=== PATIENT | male | born 1970 | race Caucasian/White ===

== ENCOUNTER 2017-04-08 09:38 | Inpatient (IN) ==
[2017-04-08] MEDS ORDERED: 0.9 % SODIUM CHLORIDE 1,000 ML IV ONE ×4 (10:12→15:35)
[2017-04-08 10:44] LABS: Mean Corpuscular HGB Conc 33.2 g/dL (31.0-36.0); Mean Corpuscular Hemoglobin 30.9 pg (26.0-34.0); Platelet Count 276 K/mcL (140-440); Red Cell Distribution Width 13.2 % (11.5-14.5)
--- NOTE | 2017-04-08 10:51 | Emergency Department Note ---
Skin/Abscess/FB HPI - General Chief complaint: Skin/Abscess/Foreign Body Stated complaint: Left buttock and ilya area abscess Time Seen by Provider: 04/08/17 10:20 Source: patient Mode of arrival: ambulatory Limitations: no limitations - History of Present Illness HPI Narrative: 46-year-old male with a history of pain to the left buttocks is been present approximately for 5 days is a large area of tenderness and fluctuation there is no erythema there is no head to the area there is extreme tenderness on palpation. No injury no trauma he has had no previous history of MRSA he is borderline diabetic treated by diet alone. The pain is severe as 03/05 which is 99 2 however patient states he felt warm and hot no erythema no redness to the area no areas close to the anal region or in the soft tissue of the left buttocks - Related Data Home Medications Medication Instructions Recorded Confirmed Pantoprazole [Protonix] 40 mg PO BID 04/08/17 04/08/17 Allergies Allergy/AdvReac Type Severity Reaction Status Date / Time No Known Drug Allergies Allergy Unverified 04/08/17 09:43 Physical Exam - General Limitations: no limitations General appearance: alert - Head Head exam: atraumatic - Eye Eye exam: Present: normal appearance - ENT ENT exam: normal exam - Neck Neck exam: Present: normal inspection, full ROM - Chest Chest inspection: Present: normal inspection, symmetric chest wall rise - Respiratory Respiratory exam: Present: normal lung sounds bilaterally. Absent: respiratory distress - Cardiovascular Cardiovascular exam: Present: regular rate, normal rhythm. Absent: bradycardia , tachycardia - Abdominal Exam Abdominal exam: Present: soft, distention. Absent: tenderness, guarding - Rectal Exam Rectal exam: Present: normal inspection, normal rectal tone, tenderness ( tenderness to left buttock). Absent: hemorrhoids - exam: Present: normal inspection. Absent: testicular tenderness, urethral discharge - Extremities Exam Extremities exam: Present: normal inspection, full ROM - Back Exam Back exam: Present: normal inspection, full ROM - Neurological Exam Neurological exam: Present: alert, oriented X3, CN II-XII intact - Psychiatric Psychiatric exam: Present: normal affect, normal mood - Skin Skin exam: Present: warm, dry Course Vital Signs Temperature 99.2 F H 04/08/17 09:39 Pulse Rate 102 H 04/08/17 09:39 Respiratory Rate 18 04/08/17 09:39 Blood Pressure 109/72 04/08/17 09:39 Pulse Oximetry (%) 99 04/08/17 09:39 Temperature 98.3 F 04/08/17 18:11 Pulse Rate 105 H 04/08/17 18:11 Respiratory Rate 16 04/08/17 18:11 Blood Pressure 103/60 04/08/17 18:11 Pulse Oximetry (%) 95 04/08/17 18:11 Skin/Abscess/Foreign Body - MDM Narrative Medical decision making narrative: ct5 show fluid collection. wbc elevated. fever Dx Perirectal abcess - Lab Data Result diagrams: 04/08/17 10:12 04/08/17 10:12 Lab Results 04/08/17 04/08/17 04/08/17 Range/Units 10:12 10:12 10:12 WBC 23.6 H (4.5-11.0) K/mcL RBC 4.50 (4.50-5.90) M/mcL Hgb 13.9 (13.5-16.5) g/dL Hct 41.9 (41.0-55.0) % POC Hct TNP MCV 93.0 (80.0-100.0) fL MCH 30.9 (26.0-34.0) pg MCHC 33.2 (31.0-36.0) g/dL RDW 13.2 (11.5-14.5) % Plt Count 276 (140-440) K/mcL MPV 9.2 (7.4-10.4) fL Total Counted 100 Seg Neutrophils % 59 (38-78) % Band Neutrophils % 21 H (0-10) % Lymphocytes % 8 L (15-49) % Monocytes % (Manual) 12 (1-12) % Platelet Estimate Normal (NORMAL) RBC Morphology Normal (NORMAL) PT 17.8 H (11.9-14.5) sec INR 1.4 H (0.9-1.1) APTT (20-37) sec VBG Lactic Acid (0.5-2.2) mmol/L POC Sodium Not Reportable Sodium 139 (133-145) mmol/L POC Potassium Not Reportable Potassium 3.8 (3.3-5.1) mmol/L POC Chloride Not Reportable Chloride 98 (96-108) mmol/L Carbon Dioxide 23 (22-30) mmol/L POC Total CO2 Not Reportable Anion Gap 18.0 H (8-16) POC BUN Not Reportable BUN 11 (6-20) mg/dl Creatinine 1.2 (0.7-1.2) mg/dl POC Creatinine Not Reportable GFR Calculation 71 Glucose 149 H (70-105) mg/dL POC Glucose Not Reportable Calcium 8.5 L (8.6-10.4) mg/dl POC WB Ioniz Calcium Not Reportable Total Bilirubin 0.7 (0.0-1.0) mg/dL AST 17 (0-37) U/l ALT 19 (0-40) U/l Alkaline Phosphatase 85 (39-117) U/L Total Protein 6.8 (5.9-8.4) gm/dL Albumin 3.6 (3.2-5.2) gm/dL Globulin 3.2 (2.2-3.7) gm/dL Albumin/Globulin Ratio 1.1 (1.0-2.3) 04/08/17 04/08/17 Range/Units 10:12 11:00 WBC (4.5-11.0) K/mcL RBC (4.50-5.90) M/mcL Hgb (13.5-16.5) g/dL Hct (41.0-55.0) % POC Hct MCV (80.0-100.0) fL MCH (26.0-34.0) pg MCHC (31.0-36.0) g/dL RDW (11.5-14.5) % Plt Count (140-440) K/mcL MPV (7.4-10.4) fL Total Counted Seg Neutrophils % (38-78) % Band Neutrophils % (0-10) % Lymphocytes % (15-49) % Monocytes % (Manual) (1-12) % Platelet Estimate (NORMAL) RBC Morphology (NORMAL) PT (11.9-14.5) sec INR (0.9-1.1) APTT 36 (20-37) sec VBG Lactic Acid 1.6 (0.5-2.2) mmol/L POC Sodium Sodium (133-145) mmol/L POC Potassium Potassium (3.3-5.1) mmol/L POC Chloride Chloride (96-108) mmol/L Carbon Dioxide (22-30) mmol/L POC Total CO2 Anion Gap (8-16) POC BUN BUN (6-20) mg/dl Creatinine (0.7-1.2) mg/dl POC Creatinine GFR Calculation Glucose (70-105) mg/dL POC Glucose Calcium (8.6-10.4) mg/dl POC WB Ioniz Calcium Total Bilirubin (0.0-1.0) mg/dL AST (0-37) U/l ALT (0-40) U/l Alkaline Phosphatase (39-117) U/L Total Protein (5.9-8.4) gm/dL Albumin (3.2-5.2) gm/dL Globulin (2.2-3.7) gm/dL Albumin/Globulin Ratio (1.0-2.3) Disposition Pt seen by PET FEEDER/PA only: No Clinical Impression: Ilya-rectal Abscess Disposition: Xfer As Inpt ([facility]) Condition: Critical Time of Disposition: 19:54
[2017-04-08 11:08] LABS: Band Neutrophils % 21 % (0-10); Lymphocytes % 8 % (15-49); Monocytes % (Manual) 12 % (1-12); Platelet Estimate NORMAL (NORMAL); RBC Morphology NORMAL (NORMAL); Segmented Neutrophils % 59 % (38-78)
[2017-04-08 11:11] LABS: ALT/SGPT 19 U/l (0-40); Albumin 3.6 gm/dL (3.2-5.2); Albumin/Globulin Ratio 1.1 (1.0-2.3); Alkaline Phosphatase 85 U/L (39-117); Blood Urea Nitrogen 11 mg/dl (6-20)
[2017-04-08] MEDS ORDERED: ACETAMINOPHEN 325 MG TABLET PO ONE (11:21)
[2017-04-08] MEDS ORDERED: VANCOMYCIN 1,000 MG in 0.9 % SODIUM CHLORIDE 250 ML IV ONE (11:56)
[2017-04-08] MEDS: HYDROmorphone 2 MG/ML SYRINGE IV PRN ×3 (12:22→14:22)
[2017-04-08] MEDS ORDERED: IBUPROFEN 600 MG TABLET PO ONE (13:21)
[2017-04-08] MEDS ORDERED: PIPERACILLIN SODIUM/TAZOBACTAM 3.375 GM in DEXTROSE 5% IN WATER 50 ML IV SCH (15:00)
[2017-04-08] MEDS ORDERED: PIPERACILLIN SODIUM/TAZOBACTAM 3.375 GM VIAL IV ONE ×2 (15:03→21:06)
--- NOTE | 2017-04-08 15:25 | General Surg History&Physical ---
History of Present Illness Patient information: Note initiated : 04/08/17 at 3:22 pm Service Date, if different from initiated Date: [] Patient: Bear Reis a 46 y/o M admitted on for Left buttock and ilya area abscess. Chief Complaint: [] HPI: Mr. Reis is a 46 year old M with 5 day history of perianal pain and 3 day history of fever ,chills, sweats weakness and dizziness. He is seen in the emergency room and has symptoms of sepsis with 23,[address] evidence of a major issue rectal abscess that extends into the perirectal space and out into the left buttock. He is admitted and will have urgent surgery. He has been covered with Zosyn and vancomycin. Review of Systems - Constitutional chills, fatigue, fever(s), headache(s), night sweats - EENT Nose, mouth and throat: no abnormal hearing, no hoarseness - Cardiovascular no chest pain at rest, no dyspnea on exertion, no irregular heart rhythm, no palpatations, no rapid heart rate, no syncope - Respiratory no cough, no dyspnea on exertion, no wheezing, no chest congestion - Gastrointestinal no abdominal pain, no cramping, no dysphagia, no heartburn, no nausea, no vomiting - Genitourinary no difficulty urinating, no urinary incontinence - Musculoskeletal no abnormal gait, no back pain, no joint swelling, no stiffness - Integumentary no bleeding lesions, no changing lesions - Neurological dizziness, no abnormal gait, no burning sensations, no convulsions, no weakness - Psychiatric no anxiety, no confusion, no depression - Endocrine fatigue, no palpitations - Hematologic/Lymphatic no easy bleeding, no easy bruising, no lymphadenopathy - Allergic/Immunologic no tongue swelling, no throat swelling, no uticaria, no wheezing, no lip swelling Past History Past medical history: Diabetes mellitus type 2 Past surgical history: Gastric laparoscopic band 2004 Right inguinal hernia repair 2015 Left arm surgery Past family history: No chronic illnesses in parents or siblings Past social history: Tobacco --- chew tobacco 20 years stopped 2000 Alcohol--- occasional use Drugs-denies use-- with one child Employed Medications and Allergies Home Medications Medication Instructions Recorded Confirmed Type Pantoprazole [Protonix] 40 mg PO BID 04/08/17 04/08/17 History Allergies Allergy/AdvReac Type Severity Reaction Status Date / Time No Known Drug Allergies Allergy Unverified 04/08/17 09:43 Exam Temp Pulse Resp BP Pulse Ox 99.2 F H 93 H 20 105/63 92 04/08/17 15:22 04/08/17 15:20 04/08/17 15:20 04/08/17 15:20 04/08/17 15:20 - General physical appearance well developed, well nourished, no distress, severe distress, other (Acutely ill ,pale and diaphoretic) - Eyes PERRL, normal ocular movement - ENT normal pinna, normal nares, normal mucosa, no hearing loss, no congestion - Head Head exam IM: Present: atraumatic, normocephalic - Neck no masses, no bruits, trachea midline, no lymphadectomy, no venous distension - Cardiovascular Cardiovascular exam IM: Present: normal rate and rhythm - Respiratory normal expansion, normal respiratory effort, clear to percussion, clear to auscultation - Abdomen Abdomen: Present: soft, non tender, bowel sounds, distended (Mildly distended, LAP-BAND port and right upper quadrant; no tenderness noted) Hernia: Present: none - Genitourinary Present: normal penis with no external lesions - Rectum Rectum: Present: normal sphincter tone, no hemorrhoids, no tenderness, no masses , no bleeding, other (Mild perianal swelling with diffuse redness of the left buttock and induration extending from the perianal area into the perineum) - Integumentary Present: no rash, no growths, no abnormal pigmentation - Neurologic Present: normal coordination, normal sensation - Musculoskeletal Present: normal gait, normal posture - Psychiatric Present: oriented to time, oriented to person, oriented to place, speech is normal, memory intact Assessment and Plan (1) Perirectal abscess The abscess extends to the ischio- rectal space and above the levators. It also extends around the rectum into the deep pelvis. He is acutely septic and will be taken to the OR urgently. He has been covered with Zosyn and vancomycin pending culture results. Status: Acute (2) Acute onset sepsis Status: Acute (3) Diabetes mellitus type 2 in obese Status: Acute
[2017-04-08] MEDS ORDERED: ONDANSETRON 4 MG/2 ML VIAL IV ONE (15:26)
[2017-04-08] MEDS ORDERED: ONDANSETRON 4 MG/2 ML VIAL ONE (15:32)
[2017-04-08] MEDS ORDERED: SUCCINYLCHOLINE 20 MG/ML ML IV ONE (16:10)
[2017-04-08] MEDS ORDERED: fentaNYL 250 MCG/5 ML VIAL IV ONE (16:10)
[2017-04-08] MEDS ORDERED: DEXAMETHASONE 10 MG/ML VIAL IV ONE (16:10)
[2017-04-08] MEDS ORDERED: GLYCOPYRROLATE 0.2 MG/ML VIAL IV ONE (16:10)
[2017-04-08] MEDS ORDERED: PROPOFOL 200 MG/20 ML VIAL IV ONE (16:10)
[2017-04-08] MEDS ORDERED: KETAMINE 100 MG/ML ML IV ONE (16:10)
[2017-04-08] MEDS ORDERED: MIDAZOLAM 2 MG/2 ML VIAL IV ONE (16:10)
[2017-04-08] MEDS ORDERED: LIDOCAINE HCL/PF 100 MG/5 ML SYRINGE IV ONE (16:10)
[2017-04-08] MEDS ORDERED: FLUMAZENIL 0.1 MG/ML ML IV PRN (16:45)
[2017-04-08] MEDS ORDERED: METHOCARBAMOL 1,000 MG/10 ML VIAL IV PRN (16:45)
[2017-04-08] MEDS ORDERED: diphenhydrAMINE 50 MG/ML VIAL IV PRN (16:45)
[2017-04-08] MEDS ORDERED: NALOXONE HCL 0.4 MG/ML VIAL IV PRN (16:45)
[2017-04-08] MEDS ORDERED: HYDROmorphone 2 MG/ML SYRINGE IV PRN (16:45)
[2017-04-08] MEDS ORDERED: LACTATED RINGERS 250 ML IV PRN (16:45)
[2017-04-08] MEDS ORDERED: MEPERIDINE 25 MG/ML SYRINGE IV PRN (16:45)
[2017-04-08] MEDS ORDERED: IPRATROPIUM/ALBUTEROL 3 ML AMPUL.NEB NEB PRN ×3 (16:45→18:12)
[2017-04-08] MEDS ORDERED: fentaNYL 100 MCG/2 ML VIAL IV PRN (16:45)
[2017-04-08] MEDS ORDERED: LACTATED RINGERS 1,000 ML IV SCH (16:45)
[2017-04-08] MEDS ORDERED: MEPERIDINE 50 MG/ML SYRINGE IM PRN (16:45)
[2017-04-08] MEDS ORDERED: ePHEDrine 50 MG/ML AMPUL IV PRN (16:45)
[2017-04-08] MEDS ORDERED: ONDANSETRON 4 MG/2 ML VIAL IV PRN ×2 (16:45→18:12)
[2017-04-08] MEDS ORDERED: BENZOCAINE/MENTHOL 1 LOZENGE PO PRN (16:45)
--- NOTE | 2017-04-08 16:57 | Brief Operative Note ---
Date of procedure: 04/08/17 Pre-op diagnosis: high ischiorectal abscess, left Post-op diagnosis: other (high ischiorectal abscess,left) Procedure: excisional debridement and drainage of ischiorectal abscess (above pelvic floor) ; left Grafts/Implants: No (1/2 inch fabian drain) Anesthesia: GETA Findings: very large abscess along perirectal space extending at least 10 inches from perianal area to area above muscles of pelvic floor Complications: none Surgeon: Rach Reis Estimated blood loss (cc): 30 Specimens Removed/Pathology: other (cultures of purulent drainage for aerobic and anaerobic cultures) Condition: other (fair) Disposition: PACU
[2017-04-08] MEDS ORDERED: BACITRACIN 50,000 UNIT VIAL IR ONE (17:20)
[2017-04-08] MEDS ORDERED: IPRATROPIUM/ALBUTEROL 3 ML AMPUL.NEB NEB ONE (17:20)
[2017-04-08] MEDS ORDERED: MEPERIDINE 50 MG/ML SYRINGE ONE (17:35)
--- NOTE | 2017-04-08 17:58 | XRay Report ---
CLINICAL INFORMATION: Preop COMPARISON: None. FINDINGS:The heart size, mediastinum and pulmonary vessels are unremarkable. The lungs are clear. There are no effusions. The bones and soft tissues are within normal limits. IMPRESSION: Normal chest. Interpreted and Authenticated by: Edson Ross 04/08/17
--- NOTE | 2017-04-08 18:37 | Cat Scan Report ---
CLINICAL INFORMATION: Gluteal abscess on physical exam COMPARISON: None. TECHNIQUE: 100 cc of Optiray 320 were injected intravenously and 25 seconds later 2.5 mm helical slices were obtained from the mid L4 through the subtrochanteric regions. Following reconstruction, 2.5 mm sagittal, coronal and axial reformations were processed. The exam was reviewed in bone and soft tissue windows. FINDINGS: There is a large (14 x 10 cm) phlegmon with a large amount of associated gas in the perirectal/perianal soft tissues with extension into the left ischial rectal fossa and the left gluteal region. No associated foreign body and no evidence of discrete abscess. The remainder of the visualized colon and small bowel are normal. There is no free intraperitoneal air or fluid. No adenopathy. Urinary bladder is normal. Prostate and seminal vesicles are normal. Bone windows show no evidence of osteomyelitis or other focal osseous abnormality. IMPRESSION: Large (14 x 10 cm) phlegmon in the perirectal/perianal region extending into the left ischial rectal fossa inferiorly into the subcutaneous left gluteal region. It contains a large amount of gas which could indicate the presence of gas gangrene. There is no evidence of a discrete abscess or foreign body. Interpreted and Authenticated by: Edson Ross 04/08/17
[2017-04-08] MEDS ORDERED: metroNIDAZOLE 500 MG/100 ML BAG IV ONE (19:32)
[2017-04-08] MEDS: 0.9 % SODIUM CHLORIDE 1,000 ML IV SCH (20:56)
[2017-04-08] MEDS ORDERED: VANCOMYCIN 500 MG VIAL ONE (21:07)
[2017-04-08] MEDS: VANCOMYCIN 1,500 MG in 0.9 % SODIUM CHLORIDE 500 ML IV SCH (21:22)
[2017-04-08] MEDS: DOCUSATE SODIUM 100 MG CAPSULE PO SCH (21:23)
[2017-04-08] MEDS: 0.9 % SODIUM CHLORIDE 10 ML SYRINGE IV SCH (22:03)
[2017-04-08] MEDS: PIPERACILLIN SODIUM/TAZOBACTAM 3.375 GM in DEXTROSE 5% IN WATER 50 ML IV SCH (23:18)
[2017-04-08] MEDS: metroNIDAZOLE 500 MG/100 ML BAG IV SCH (23:57)
[2017-04-09] MEDS ORDERED: PIPERACILLIN SODIUM/TAZOBACTAM 3.375 GM VIAL IV ONE (01:15)
[2017-04-09] MEDS: PIPERACILLIN SODIUM/TAZOBACTAM 3.375 GM in DEXTROSE 5% IN WATER 50 ML IV SCH ×4 (04:22→22:46)
[2017-04-09] MEDS: metroNIDAZOLE 500 MG/100 ML BAG IV SCH ×3 (04:57→18:01)
[2017-04-09] MEDS: HYDROmorphone 2 MG/ML SYRINGE IV PRN ×3 (04:57→20:49)
[2017-04-09] MEDS: 0.9 % SODIUM CHLORIDE 1,000 ML IV SCH ×3 (05:13→15:23)
[2017-04-09] MEDS: 0.9 % SODIUM CHLORIDE 10 ML SYRINGE IV SCH ×3 (05:13→23:03)
[2017-04-09 06:52] LABS: Mean Cell Volume 93.4 fL (80.0-100.0); Mean Corpuscular HGB Conc 33.1 g/dL (31.0-36.0); Mean Corpuscular Hemoglobin 30.9 pg (26.0-34.0); Platelet Count 218 K/mcL (140-440); RBC 3.73 M/mcL (4.50-5.90)
[2017-04-09 07:07] LABS: ALT/SGPT 16 U/l (0-40); Albumin 2.7 gm/dL (3.2-5.2); Albumin/Globulin Ratio 0.9 (1.0-2.3); Alkaline Phosphatase 73 U/L (39-117); Bilirubin,Direct < 0.2 mg/dL (0.0-0.3); Blood Urea Nitrogen 9 mg/dl (6-20); Gamma Glutamyl Transpeptidase 26 U/L (8-61); Magnesium 1.9 mg/dL (1.6-2.5); Uric Acid 2.1 mg/dL (2.5-8.0)
[2017-04-09] MEDS: PANTOPRAZOLE 40 MG TABLET PO SCH (07:29)
--- NOTE | 2017-04-09 07:51 | General Surgery Progress Note ---
Subjective Patient reports: feels better, still having pain, tolerating liquids well, flatus, bowel movement, afebrile Narrative: Note initiated : 04/09/17 at 7:48 am Service Date, if different from initiated Date: [] Patient: Bear Reis 46 y/o M admitted on 04/08/17 for Left buttock and ilya area abscess. Chief Complaint: [Patient is improving remarkably well. He has defervesced and he has stable vital signs. There is no tachycardia and his blood pressure is stable. His pain is moderate in severity. He denies nausea and has tolerated diet. He has had soft bowel movement. He still has a large volume of dark muddy looking drainage. His white blood count is trending down. There is no progression of the cellulitis of his buttock, perineum or scrotal area.] Objective Temp Pulse Resp BP Pulse Ox 97.7 F 79 16 106/72 95 04/09/17 03:12 04/09/17 03:12 04/09/17 03:12 04/09/17 03:12 04/09/17 03:12 - Additional Data Intake & Output - Last 24 hours: Intake & Output 04/07/17 04/08/17 04/09/17 04/10/17 05:59 05:59 05:59 05:59 Intake Total 100 / 4350 Output Total 1400 / 1450 Balance -1300 / 2900 Weight 290 lb 8 oz - General physical appearance moderate distress, moderate pain - Eyes PERRL - ENT no congestion - Neck no venous distension - Respiratory clear to auscultation, other (No wheezes noted) - Cardiovascular Cardiovascular exam: Present: normal rate and rhythm, RRR, +S1, +S2. Absent: JVD, tachycardia - Abdomen soft, non tender, bowel sounds (Good active bowel sounds with mild distention; no tenderness or guarding) - Genitourinary normal penis with no external lesions, testicles present, testicles non-tender, other (Minimal edema of scrotal sac but no cellulitis) - Rectum normal sphincter tone, other (Wound has copious drainage but no progression into the perianal or perineal area) - Integumentary no rash, no growths, no abnormal pigmentation - Neurologic normal coordination, normal sensation - Psychiatric oriented to time, oriented to person, oriented to place, speech is normal, memory intact - Labs 04/09/17 04:25 04/09/17 04:25 Diabetes panel 04/09/17 Range/Units 04:25 Sodium 142 (133-145) mmol/L Potassium 4.0 (3.3-5.1) mmol/L Chloride 106 (96-108) mmol/L Carbon Dioxide 21 L (22-30) mmol/L BUN 9 (6-20) mg/dl Creatinine 0.7 (0.7-1.2) mg/dl Glucose 195 H (70-105) mg/dL Calcium 8.0 L (8.6-10.4) mg/dl AST 12 (0-37) U/l ALT 16 (0-40) U/l Alkaline Phosphatase 73 (39-117) U/L Total Protein 5.8 L (5.9-8.4) gm/dL Albumin 2.7 L (3.2-5.2) gm/dL Triglycerides 72 (<150) mg/dl Calcium panel 04/09/17 Range/Units 04:25 Calcium 8.0 L (8.6-10.4) mg/dl Phosphorus 2.3 L (2.7-4.5) mg/dL Albumin 2.7 L (3.2-5.2) gm/dL Pituitary panel 04/09/17 Range/Units 04:25 Sodium 142 (133-145) mmol/L Potassium 4.0 (3.3-5.1) mmol/L Chloride 106 (96-108) mmol/L Carbon Dioxide 21 L (22-30) mmol/L BUN 9 (6-20) mg/dl Creatinine 0.7 (0.7-1.2) mg/dl Glucose 195 H (70-105) mg/dL Calcium 8.0 L (8.6-10.4) mg/dl Adrenal panel 04/09/17 Range/Units 04:25 Sodium 142 (133-145) mmol/L Potassium 4.0 (3.3-5.1) mmol/L Chloride 106 (96-108) mmol/L Carbon Dioxide 21 L (22-30) mmol/L BUN 9 (6-20) mg/dl Creatinine 0.7 (0.7-1.2) mg/dl Glucose 195 H (70-105) mg/dL Calcium 8.0 L (8.6-10.4) mg/dl Total Bilirubin 0.3 (0.0-1.0) mg/dL AST 12 (0-37) U/l ALT 16 (0-40) U/l Alkaline Phosphatase 73 (39-117) U/L Total Protein 5.8 L (5.9-8.4) gm/dL Albumin 2.7 L (3.2-5.2) gm/dL Assessment and Plan (1) Perirectal abscess Status: Acute Assessment and plan: AGGRESSIVE DRESSING CHANGES CONTINUE ANTIBIOTIC CARE Current Visit: Yes (2) Acute onset sepsis Status: Acute Assessment and plan: Septicemia is improved Current Visit: Yes (3) Diabetes mellitus type 2 in obese Status: Acute Assessment and plan: Blood sugars have been in the 150-180 range but his A1c is only 5.6 Current Visit: Yes - Time Spent With Patient Total time spent is greater than 50% in coordination of care (as documented) at patient's floor/unit and/or counseling patient:
[2017-04-09] MEDS ORDERED: oxyCODONE HCL 5 MG TABLET PO PRN (08:18)
[2017-04-09 08:45] LABS: Band Neutrophils % 39 % (0-10); Lymphocytes % 1 % (15-49); Monocytes % (Manual) 3 % (1-12); Platelet Estimate NORMAL (NORMAL); RBC Morphology NORMAL (NORMAL); Segmented Neutrophils % 57 % (38-78)
[2017-04-09] MEDS: VANCOMYCIN 1,500 MG in 0.9 % SODIUM CHLORIDE 500 ML IV SCH ×2 (09:24→20:48)
[2017-04-09] MEDS: DOCUSATE SODIUM 100 MG CAPSULE PO SCH ×2 (10:06→20:49)
[2017-04-09] MEDS: HYDROcodone/APAP 10/325MG TABLET PO PRN ×2 (11:57→18:01)
[2017-04-09 12:11] LABS: Hemoglobin A1C 5.4 % HGB (4.0-6.0)
[2017-04-09] MEDS ORDERED: SODIUM PHOSPHATE 45 MMOL/15 ML VIAL IV ONE (13:40)
[2017-04-09] MEDS ORDERED: SODIUM PHOSPHATE 45 MMOL in DEXTROSE 5% IN WATER 500 ML IV ONE (15:00)
[2017-04-09] MEDS ORDERED: diphenhydrAMINE 50 MG/ML VIAL IV PRN (22:39)
[2017-04-09] MEDS ORDERED: diphenhydrAMINE 50 MG/ML VIAL ONE (22:47)
[2017-04-10] MEDS: 0.9 % SODIUM CHLORIDE 1,000 ML IV SCH ×5 (00:01→21:19)
[2017-04-10] MEDS: metroNIDAZOLE 500 MG/100 ML BAG IV SCH ×4 (00:02→17:59)
[2017-04-10] MEDS: HYDROcodone/APAP 10/325MG TABLET PO PRN ×5 (04:00→23:07)
[2017-04-10] MEDS: PIPERACILLIN SODIUM/TAZOBACTAM 3.375 GM in DEXTROSE 5% IN WATER 50 ML IV SCH ×2 (04:04→13:16)
[2017-04-10] MEDS: 0.9 % SODIUM CHLORIDE 10 ML SYRINGE IV SCH ×3 (05:33→22:41)
[2017-04-10 06:07] LABS: Mean Cell Volume 94.3 fL (80.0-100.0); Mean Corpuscular Hemoglobin 31.1 pg (26.0-34.0); Platelet Count 255 K/mcL (140-440); RBC 3.54 M/mcL (4.50-5.90); Red Cell Distribution Width 13.2 % (11.5-14.5)
[2017-04-10 06:56] LABS: ALT/SGPT 43 U/l (0-40); Albumin 2.8 gm/dL (3.2-5.2); Albumin/Globulin Ratio 0.9 (1.0-2.3); Alkaline Phosphatase 88 U/L (39-117); Bilirubin,Direct < 0.2 mg/dL (0.0-0.3); Blood Urea Nitrogen 12 mg/dl (6-20); Gamma Glutamyl Transpeptidase 24 U/L (8-61)
[2017-04-10 06:58] LABS: Hemoglobin A1C 5.5 % HGB (4.0-6.0)
[2017-04-10] MEDS: PANTOPRAZOLE 40 MG TABLET PO SCH (07:17)
[2017-04-10 07:29] LABS: Band Neutrophils % 18 % (0-10); Lymphocytes % 5 % (15-49); Monocytes % (Manual) 6 % (1-12); Platelet Estimate NORMAL (NORMAL); RBC Morphology NORMAL (NORMAL); Segmented Neutrophils % 71 % (38-78)
[2017-04-10] MEDS: DOCUSATE SODIUM 100 MG CAPSULE PO SCH ×2 (08:38→21:30)
[2017-04-10] MEDS: VANCOMYCIN 1,750 MG in 0.9 % SODIUM CHLORIDE 500 ML IV SCH ×2 (09:37→22:21)
[2017-04-10] MEDS: VANCOMYCIN 1,500 MG in 0.9 % SODIUM CHLORIDE 500 ML IV SCH (11:28)
--- NOTE | 2017-04-10 14:05 | General Surgery Progress Note ---
Subjective Patient reports: feels better, pain is less, tolerating a regular diet, flatus, diarrhea, afebrile Narrative: Note initiated : 04/10/17 at 2:01 pm Service Date, if different from initiated Date: [] Patient: Bear Reis 46 y/o M admitted on 04/08/17 for Left Buttock and Laya Area Abscess. Chief Complaint: [Mrs. Resi feels better. He has much less pain. He still has a moderate amount of drainage around his Jem drains. He is afebrile however his white blood count increased. Cultures grew out E. coli which is not very sensitive to Zosyn. He will be switched to meropenem and is also will be discontinued he will be continued on his other antibiotics until we get the final results on his anaerobic growth.] Objective Temp Pulse Resp BP Pulse Ox 98.5 F 71 12 115/71 98 04/10/17 12:00 04/10/17 04:00 04/10/17 12:00 04/10/17 12:00 04/10/17 12:00 - Additional Data Intake & Output - Last 24 hours: Intake & Output 04/08/17 04/09/17 04/10/17 04/11/17 05:59 05:59 05:59 05:59 Intake Total 1250 / 5500 3530 / 3530 1959 Output Total 1400 / 1450 1281 / 1281 Balance -150 / 4050 2249 / 2249 1959 Weight 290 lb 8 oz 280 lb 8 oz - General physical appearance well developed, no distress, moderate pain - Eyes PERRL - ENT no congestion - Neck no masses, no venous distension - Respiratory normal expansion, normal respiratory effort, clear to auscultation - Cardiovascular Cardiovascular exam: Present: normal rate and rhythm, RRR, +S1, +S2. Absent: JVD, tachycardia - Abdomen soft, non tender, bowel sounds (Abdomen is benign with good active bowel sounds and no tenderness) - Genitourinary other (Mild swelling of scrotum but no evidence of infection extending into the scrotal sac) - Rectum normal sphincter tone, other (Induration and erythema in the perianal area significantly reduce. There is still significant drainage around his HELLEN drains) - Integumentary other (The rash that he had has resolved with Benadryl) - Neurologic normal coordination, normal sensation - Musculoskeletal normal gait, normal posture - Psychiatric oriented to time, oriented to person, oriented to place, speech is normal, memory intact - Labs 04/10/17 04:02 04/10/17 04:40 Diabetes panel 04/10/17 04/10/17 Range/Units 04:02 04:40 Sodium 140 (133-145) mmol/L Potassium 3.8 (3.3-5.1) mmol/L Chloride 104 (96-108) mmol/L Carbon Dioxide 24 (22-30) mmol/L BUN 12 (6-20) mg/dl Creatinine 0.7 (0.7-1.2) mg/dl Glucose 173 H (70-105) mg/dL Hemoglobin A1c 5.5 (4.0-6.0) % HGB Calcium 8.1 L (8.6-10.4) mg/dl AST 42 H (0-37) U/l ALT 43 H (0-40) U/l Alkaline Phosphatase 88 (39-117) U/L Total Protein 5.9 (5.9-8.4) gm/dL Albumin 2.8 L (3.2-5.2) gm/dL Triglycerides 127 (<150) mg/dl Calcium panel 04/10/17 Range/Units 04:40 Calcium 8.1 L (8.6-10.4) mg/dl Phosphorus 2.1 L (2.7-4.5) mg/dL Albumin 2.8 L (3.2-5.2) gm/dL Pituitary panel 04/10/17 Range/Units 04:40 Sodium 140 (133-145) mmol/L Potassium 3.8 (3.3-5.1) mmol/L Chloride 104 (96-108) mmol/L Carbon Dioxide 24 (22-30) mmol/L BUN 12 (6-20) mg/dl Creatinine 0.7 (0.7-1.2) mg/dl Glucose 173 H (70-105) mg/dL Calcium 8.1 L (8.6-10.4) mg/dl Adrenal panel 04/10/17 Range/Units 04:40 Sodium 140 (133-145) mmol/L Potassium 3.8 (3.3-5.1) mmol/L Chloride 104 (96-108) mmol/L Carbon Dioxide 24 (22-30) mmol/L BUN 12 (6-20) mg/dl Creatinine 0.7 (0.7-1.2) mg/dl Glucose 173 H (70-105) mg/dL Calcium 8.1 L (8.6-10.4) mg/dl Total Bilirubin 0.2 (0.0-1.0) mg/dL AST 42 H (0-37) U/l ALT 43 H (0-40) U/l Alkaline Phosphatase 88 (39-117) U/L Total Protein 5.9 (5.9-8.4) gm/dL Albumin 2.8 L (3.2-5.2) gm/dL Assessment and Plan (1) Perirectal abscess Status: Acute Assessment and plan: AGGRESSIVE DRESSING CHANGES CONTINUE ANTIBIOTIC CARE Discontinue Zosyn Start meropenem 1 g IV every 8 hours Current Visit: Yes (2) Acute onset sepsis Status: Acute Assessment and plan: Septicemia is improved Current Visit: Yes (3) Diabetes mellitus type 2 in obese Status: Acute Assessment and plan: Blood sugars have been in the 150-180 range but his A1c is only 5.6 Current Visit: Yes - Time Spent With Patient Total time spent is greater than 50% in coordination of care (as documented) at patient's floor/unit and/or counseling patient:
[2017-04-10] MEDS ORDERED: SODIUM PHOSPHATE 45 MMOL/15 ML VIAL IV ONE (14:10)
[2017-04-10] MEDS: MEROPENEM 1 GM in 0.9 % SODIUM CHLORIDE 50 ML IV SCH ×2 (14:10→22:21)
[2017-04-10] MEDS: SODIUM PHOSPHATE 45 MMOL in DEXTROSE 5% IN WATER 500 ML IV SCH (15:19)
[2017-04-10] MEDS: MEPERIDINE 50 MG/ML SYRINGE IV PRN (18:49)
[2017-04-11] MEDS: SODIUM PHOSPHATE 45 MMOL in DEXTROSE 5% IN WATER 500 ML IV SCH (00:05)
[2017-04-11] MEDS: 0.9 % SODIUM CHLORIDE 1,000 ML IV SCH ×4 (01:30→21:51)
[2017-04-11] MEDS: MEPERIDINE 50 MG/ML SYRINGE IV PRN ×3 (01:47→17:27)
[2017-04-11] MEDS: metroNIDAZOLE 500 MG/100 ML BAG IV SCH ×4 (02:04→18:09)
[2017-04-11] MEDS: HYDROcodone/APAP 10/325MG TABLET PO PRN ×4 (03:14→20:05)
[2017-04-11] MEDS: 0.9 % SODIUM CHLORIDE 10 ML SYRINGE IV SCH ×3 (05:59→22:43)
[2017-04-11] MEDS: MEROPENEM 1 GM in 0.9 % SODIUM CHLORIDE 50 ML IV SCH ×3 (05:59→21:31)
[2017-04-11 07:04] LABS: Mean Cell Volume 93.7 fL (80.0-100.0); Mean Corpuscular HGB Conc 33.1 g/dL (31.0-36.0); Platelet Count 273 K/mcL (140-440); RBC 3.67 M/mcL (4.50-5.90); Red Cell Distribution Width 13.6 % (11.5-14.5)
[2017-04-11] MEDS: PANTOPRAZOLE 40 MG TABLET PO SCH (08:16)
[2017-04-11 08:32] LABS: Band Neutrophils % 11 % (0-10); Eosinophils % (Manual) 1 % (0-7); Lymphocytes % 17 % (15-49); Monocytes % (Manual) 3 % (1-12); Platelet Estimate NORMAL (NORMAL); RBC Morphology NORMAL (NORMAL); Segmented Neutrophils % 68 % (38-78)
[2017-04-11 09:04] LABS: ALT/SGPT 69 U/l (0-40); Albumin 2.9 gm/dL (3.2-5.2); Albumin/Globulin Ratio 0.9 (1.0-2.3); Alkaline Phosphatase 75 U/L (39-117); Bilirubin,Direct < 0.2 mg/dL (0.0-0.3); Blood Urea Nitrogen 10 mg/dl (6-20); Gamma Glutamyl Transpeptidase 27 U/L (8-61); Magnesium 1.8 mg/dL (1.6-2.5); Uric Acid 2.8 mg/dL (2.5-8.0)
[2017-04-11] MEDS: DOCUSATE SODIUM 100 MG CAPSULE PO SCH ×2 (09:28→20:05)
[2017-04-11] MEDS ORDERED: 0.9 % SODIUM CHLORIDE 10 ML SYRINGE IV PRN (09:47)
[2017-04-11] MEDS: VANCOMYCIN 1,750 MG in 0.9 % SODIUM CHLORIDE 500 ML IV SCH (09:47)
--- NOTE | 2017-04-11 11:51 | XRay Report ---
HISTORY: Reason for Exam:Check PICC line placement FINDINGS: The PICC line has been placed to the right arm. The tip is in the right side of the superior mediastinum and is pointing medially. This could be within the azygos vein or the origin of the left innominate vein. There is no pneumothorax or pleural effusion. Lungs are clear and there is no widening of the mediastinum. The heart size is normal. IMPRESSION: PICC line placed in a branch off of the superior vena cava. If the catheter were to be pulled back 1 to 1 1/2 cm, it should then be properly positioned in the superior vena cava and could then be used. Nursing checkout supervisor was called with results Interpreted and Authenticated by: Doroteo Gotti 04/11/17
--- NOTE | 2017-04-11 14:35 | General Surgery Progress Note ---
Subjective Patient reports: feels better, still having pain, pain is less, tolerating a regular diet, voiding w/o difficulty, flatus, bowel movement, afebrile Narrative: Note initiated : 04/11/17 at 2:31 pm Service Date, if different from initiated Date: [] Patient: Bear Reis 46 y/o M admitted on 04/08/17 for Left Buttock and Laya Area Abscess. Chief Complaint: [Mr. Reis continues to improve. He remains afebrile and his vital signs are stable without hypotension or tachycardia. He had a good response to the meropenem therapy and his white blood count is down to 16,000 today. He still has a significant amount of purulent drainage. No other organism has been cultured except for E. coli though it is probable that this is a multi-organism process. He will be continued on IV Flagyl for anaerobes and the meropenem will cover most anaerobes. There is significant induration of the left buttock so a follow-up CT of the pelvis will be done to make sure that there is no progression of the infectious process. He had a PICC line placed today and if he remains stable he will be discharged home with 3 weeks of IV meropenem and p.o. Flagyl. If there is progression of disease he will be taken back for more debridement. This was discussed with the patient and with his .]. Objective Temp Pulse Resp BP Pulse Ox 98.0 F 67 74 H 119/78 97 04/11/17 12:00 04/11/17 03:41 04/11/17 12:00 04/11/17 12:00 04/11/17 12:00 - Additional Data Intake & Output - Last 24 hours: Intake & Output 04/09/17 04/10/17 04/11/17 04/12/17 05:59 05:59 05:59 05:59 Intake Total 1250 / 5500 3530 / 3530 6125 / 6125 553 / 553 Output Total 1400 / 1450 1281 / 1281 750 / 750 1400 / 1400 Balance -150 / 4050 2249 / 2249 5375 / 5375 -847 / -847 Weight 290 lb 8 oz 280 lb 8 oz 285 lb - General physical appearance other (Mild distress due to pain in his left buttock) - ENT no congestion - Neck no venous distension - Respiratory normal respiratory effort, clear to auscultation - Cardiovascular Cardiovascular exam: Present: normal rate and rhythm, RRR, +S1, +S2. Absent: JVD, tachycardia - Abdomen soft, non tender (Abdomen is benign, nontender with good active bowel sounds.) - Genitourinary other ( There is mild swelling of his scrotum but no evidence of progression of inflammation in this area.) - Integumentary no rash, no growths, no abnormal pigmentation - Neurologic normal coordination, normal sensation - Musculoskeletal normal gait, normal posture - Psychiatric oriented to time - Labs 04/11/17 04:45 04/11/17 05:04 Diabetes panel 04/11/17 Range/Units 05:04 Sodium 138 (133-145) mmol/L Potassium 3.3 (3.3-5.1) mmol/L Chloride 101 (96-108) mmol/L Carbon Dioxide 26 (22-30) mmol/L BUN 10 (6-20) mg/dl Creatinine 0.7 (0.7-1.2) mg/dl Glucose 115 H (70-105) mg/dL Calcium 7.9 L (8.6-10.4) mg/dl AST 45 H (0-37) U/l ALT 69 H (0-40) U/l Alkaline Phosphatase 75 (39-117) U/L Total Protein 6.0 (5.9-8.4) gm/dL Albumin 2.9 L (3.2-5.2) gm/dL Triglycerides 88 (<150) mg/dl Calcium panel 04/11/17 Range/Units 05:04 Calcium 7.9 L (8.6-10.4) mg/dl Phosphorus 4.6 H (2.7-4.5) mg/dL Albumin 2.9 L (3.2-5.2) gm/dL Pituitary panel 04/11/17 Range/Units 05:04 Sodium 138 (133-145) mmol/L Potassium 3.3 (3.3-5.1) mmol/L Chloride 101 (96-108) mmol/L Carbon Dioxide 26 (22-30) mmol/L BUN 10 (6-20) mg/dl Creatinine 0.7 (0.7-1.2) mg/dl Glucose 115 H (70-105) mg/dL Calcium 7.9 L (8.6-10.4) mg/dl Adrenal panel 04/11/17 Range/Units 05:04 Sodium 138 (133-145) mmol/L Potassium 3.3 (3.3-5.1) mmol/L Chloride 101 (96-108) mmol/L Carbon Dioxide 26 (22-30) mmol/L BUN 10 (6-20) mg/dl Creatinine 0.7 (0.7-1.2) mg/dl Glucose 115 H (70-105) mg/dL Calcium 7.9 L (8.6-10.4) mg/dl Total Bilirubin 0.2 (0.0-1.0) mg/dL AST 45 H (0-37) U/l ALT 69 H (0-40) U/l Alkaline Phosphatase 75 (39-117) U/L Total Protein 6.0 (5.9-8.4) gm/dL Albumin 2.9 L (3.2-5.2) gm/dL Assessment and Plan (1) Perirectal abscess Status: Acute Assessment and plan: AGGRESSIVE DRESSING CHANGES Significant improvement after instituting meropenem We will continue IV metronidazole Tentative plans for discharge home in 2 days if he continues to improve CT of the pelvis to evaluate the depth of penetration of the abscess Current Visit: Yes (2) Acute onset sepsis Status: Acute Assessment and plan: Septicemia is improved Current Visit: Yes (3) Diabetes mellitus type 2 in obese Status: Acute Assessment and plan: Blood sugars have been in the 150-180 range but his A1c is only 5.6 Current Visit: Yes - Time Spent With Patient Total time spent is greater than 50% in coordination of care (as documented) at patient's floor/unit and/or counseling patient:
[2017-04-11] MEDS ORDERED: IOPAMIDOL 100 ML BOTTLE IJ ONE (15:18)
--- NOTE | 2017-04-11 15:44 | Cat Scan Report ---
CLINICAL INFORMATION: Follow-up abscess in the left buttock and perianal region COMPARISON: 04/08/17 TECHNIQUE: 100 cc of Optiray 320 were injected intravenously and 25 seconds later 2.5 mm helical slices were obtained from the mid L4 through the subtrochanteric region and 1.25 mm reconstructions were obtained. 2.5 mm sagittal, coronal and axial reformations were processed. The exam was reviewed in bone and soft tissue window/algorithm. FINDINGS: Severe cellulitis is again seen in the left perineal region extending into the left ischiorectal fossa and the inferior medial aspect of the left buttock. There are numerous pockets of gas within this infected tissue. No abscess collection is present. A surgical drain has been inserted into this infected subcutaneous tissue. The swelling has improved compared with the preoperative CT scan. The volume of air within the infected soft tissues has not changed significantly. No intraperitoneal infection is seen. There is a bubble of air within the urinary bladder. This is probably related to recent catheterization.. Patient has developed a moderate amount of subcutaneous edema in the anterolateral pelvic wall, predominantly along the left side. In addition there is now scrotal edema. IMPRESSION: Improving subcutaneous phlegmon in the left perineal region extending into the ischiorectal fossa. Increasing subcutaneous edema along the anterior lateral margin of the lower pelvis and left buttock Interpreted and Authenticated by: Doroteo Gotti 04/11/17
[2017-04-11] MEDS: POTASSIUM CHLORIDE 20 MEQ PACKET PO SCH (17:28)
[2017-04-12] MEDS: metroNIDAZOLE 500 MG/100 ML BAG IV SCH ×4 (00:02→18:42)
[2017-04-12] MEDS: MEPERIDINE 50 MG/ML SYRINGE IV PRN ×4 (00:09→20:36)
[2017-04-12] MEDS: 0.9 % SODIUM CHLORIDE 1,000 ML IV SCH ×3 (00:11→15:45)
[2017-04-12] MEDS: 0.9 % SODIUM CHLORIDE 10 ML SYRINGE IV SCH ×3 (04:41→20:37)
[2017-04-12] MEDS: MEROPENEM 1 GM in 0.9 % SODIUM CHLORIDE 50 ML IV SCH ×3 (05:31→22:06)
[2017-04-12] MEDS: HYDROcodone/APAP 10/325MG TABLET PO PRN ×6 (05:31→20:37)
[2017-04-12 06:52] LABS: Mean Cell Volume 93.3 fL (80.0-100.0); Mean Corpuscular HGB Conc 33.2 g/dL (31.0-36.0); Platelet Count 285 K/mcL (140-440); Red Cell Distribution Width 13.3 % (11.5-14.5)
[2017-04-12 07:21] LABS: ALT/SGPT 46 U/l (0-40); Albumin 2.4 gm/dL (3.2-5.2); Albumin/Globulin Ratio 0.9 (1.0-2.3); Alkaline Phosphatase 76 U/L (39-117); Bilirubin,Direct < 0.2 mg/dL (0.0-0.3); Blood Urea Nitrogen 7 mg/dl (6-20); Gamma Glutamyl Transpeptidase 28 U/L (8-61); Magnesium 1.9 mg/dL (1.6-2.5); Uric Acid 2.7 mg/dL (2.5-8.0)
[2017-04-12] MEDS: POTASSIUM CHLORIDE 20 MEQ PACKET PO SCH ×2 (07:29→17:47)
[2017-04-12] MEDS: PANTOPRAZOLE 40 MG TABLET PO SCH (07:29)
[2017-04-12] MEDS: DOCUSATE SODIUM 100 MG CAPSULE PO SCH ×2 (09:08→20:37)
[2017-04-12 09:48] LABS: Band Neutrophils % 5 % (0-10); Eosinophils % (Manual) 2 % (0-7); Lymphocytes % 13 % (15-49); Monocytes % (Manual) 8 % (1-12); Myelocytes % 1 % (0-0); Platelet Estimate NORMAL (NORMAL); RBC Morphology NORMAL (NORMAL); Segmented Neutrophils % 71 % (38-78)
--- NOTE | 2017-04-12 16:59 | General Surgery Progress Note ---
Subjective Patient reports: feels better, pain is less, tolerating a regular diet, flatus, bowel movement, afebrile Narrative: Note initiated : 04/12/17 at 4:57 pm Service Date, if different from initiated Date: [] Patient: Bear Reis 46 y/o M admitted on 04/08/17 for Left Buttock and Laya Area Abscess. Chief Complaint: [Patient feels better. He remains afebrile and his vital signs are stable without tachycardia or hypotension. He is tolerating diet without difficulty. He still has a moderate amount of pain in his left buttock. There is a large volume of purulent drainage still. His white blood count has not decreased over the past 24 hours. Discussed with him and his the need to reexplore and do more debridement. He will be scheduled to have this done tomorrow prior to being discharge. If the debridement goes well he can probably be discharged on Sunday.] Objective Temp Pulse Resp BP Pulse Ox 97.9 F 71 16 124/76 96 04/12/17 15:45 04/12/17 03:14 04/12/17 15:45 04/12/17 15:45 04/12/17 15:45 - Additional Data Intake & Output - Last 24 hours: Intake & Output 04/10/17 04/11/17 04/12/17 04/13/17 05:59 05:59 05:59 05:59 Intake Total 3530 / 3530 6125 / 6125 3513 / 3513 2980 / 2980 Output Total 1281 / 1281 750 / 750 1400 / 1400 Balance 2249 / 2249 5375 / 5375 2113 / 2113 2980 / 2980 Weight 280 lb 8 oz 285 lb 293 lb 8 oz 293 lb 8 oz - Respiratory clear to auscultation - Cardiovascular Cardiovascular exam: Present: normal rate and rhythm, RRR, +S1, +S2. Absent: JVD - Abdomen soft, non tender, bowel sounds (Abdomen is benign) - Genitourinary other (Scrotal edema persists but there is no progression of infection.) - Rectum other (Persistent non-regressing severe inflammation of left buttock with large volume purulent drainage) - Integumentary no rash, no growths, no abnormal pigmentation - Neurologic normal coordination, normal sensation - Musculoskeletal normal gait, normal posture - Psychiatric oriented to time, oriented to person, oriented to place, speech is normal, memory intact - Labs 04/12/17 05:36 04/12/17 05:37 Diabetes panel 04/12/17 Range/Units 05:37 Sodium 140 (133-145) mmol/L Potassium 3.8 (3.3-5.1) mmol/L Chloride 103 (96-108) mmol/L Carbon Dioxide 28 (22-30) mmol/L BUN 7 (6-20) mg/dl Creatinine 0.6 L (0.7-1.2) mg/dl Glucose 112 H (70-105) mg/dL Calcium 7.9 L (8.6-10.4) mg/dl AST 25 (0-37) U/l ALT 46 H (0-40) U/l Alkaline Phosphatase 76 (39-117) U/L Total Protein 5.2 L (5.9-8.4) gm/dL Albumin 2.4 L (3.2-5.2) gm/dL Triglycerides 69 (<150) mg/dl Calcium panel 04/12/17 Range/Units 05:37 Calcium 7.9 L (8.6-10.4) mg/dl Phosphorus 3.2 (2.7-4.5) mg/dL Albumin 2.4 L (3.2-5.2) gm/dL Pituitary panel 04/12/17 Range/Units 05:37 Sodium 140 (133-145) mmol/L Potassium 3.8 (3.3-5.1) mmol/L Chloride 103 (96-108) mmol/L Carbon Dioxide 28 (22-30) mmol/L BUN 7 (6-20) mg/dl Creatinine 0.6 L (0.7-1.2) mg/dl Glucose 112 H (70-105) mg/dL Calcium 7.9 L (8.6-10.4) mg/dl Adrenal panel 04/12/17 Range/Units 05:37 Sodium 140 (133-145) mmol/L Potassium 3.8 (3.3-5.1) mmol/L Chloride 103 (96-108) mmol/L Carbon Dioxide 28 (22-30) mmol/L BUN 7 (6-20) mg/dl Creatinine 0.6 L (0.7-1.2) mg/dl Glucose 112 H (70-105) mg/dL Calcium 7.9 L (8.6-10.4) mg/dl Total Bilirubin 0.2 (0.0-1.0) mg/dL AST 25 (0-37) U/l ALT 46 H (0-40) U/l Alkaline Phosphatase 76 (39-117) U/L Total Protein 5.2 L (5.9-8.4) gm/dL Albumin 2.4 L (3.2-5.2) gm/dL Assessment and Plan (1) Perirectal abscess Status: Acute Assessment and plan: discussed with patient the need to do further evaluation and debridement under anesthesia. This will be done tomorrow before making arrangements for discharge home. Current Visit: Yes (2) Acute onset sepsis Status: Acute Assessment and plan: Septicemia is improved Current Visit: Yes (3) Diabetes mellitus type 2 in obese Status: Acute Assessment and plan: Blood sugars have been in the 150-180 range but his A1c is only 5.6 Current Visit: Yes - Time Spent With Patient Total time spent is greater than 50% in coordination of care (as documented) at patient's floor/unit and/or counseling patient:
[2017-04-12] MEDS: CIPROFLOXACIN 400 MG/200 ML BAG IV SCH (18:42)
[2017-04-13] MEDS: HYDROcodone/APAP 10/325MG TABLET PO PRN ×4 (00:50→22:31)
[2017-04-13] MEDS: 0.9 % SODIUM CHLORIDE 1,000 ML IV SCH ×4 (00:53→19:57)
[2017-04-13] MEDS: metroNIDAZOLE 500 MG/100 ML BAG IV SCH ×4 (00:53→19:58)
[2017-04-13] MEDS: MEPERIDINE 50 MG/ML SYRINGE IV PRN ×3 (05:06→20:20)
[2017-04-13 05:43] LABS: Mean Cell Volume 93.7 fL (80.0-100.0); Mean Corpuscular HGB Conc 33.1 g/dL (31.0-36.0); Mean Corpuscular Hemoglobin 31.1 pg (26.0-34.0); Platelet Count 324 K/mcL (140-440); RBC 3.78 M/mcL (4.50-5.90); Red Cell Distribution Width 13.5 % (11.5-14.5)
[2017-04-13 06:03] LABS: ALT/SGPT 52 U/l (0-40); Albumin 2.2 gm/dL (3.2-5.2); Albumin/Globulin Ratio 0.8 (1.0-2.3); Alkaline Phosphatase 58 U/L (39-117); Bilirubin,Direct < 0.2 mg/dL (0.0-0.3); Blood Urea Nitrogen 8 mg/dl (6-20); Gamma Glutamyl Transpeptidase 26 U/L (8-61); Uric Acid 3.1 mg/dL (2.5-8.0)
[2017-04-13] MEDS: MEROPENEM 1 GM in 0.9 % SODIUM CHLORIDE 50 ML IV SCH ×2 (06:08→22:31)
[2017-04-13] MEDS: 0.9 % SODIUM CHLORIDE 10 ML SYRINGE IV SCH ×3 (06:37→20:21)
[2017-04-13 06:53] LABS: Band Neutrophils % 11 % (0-10); Eosinophils % (Manual) 9 % (0-7); Lymphocytes % 13 % (15-49); Monocytes % (Manual) 9 % (1-12); Platelet Estimate NORMAL (NORMAL); RBC Morphology NORMAL (NORMAL); Segmented Neutrophils % 58 % (38-78); Toxic Granulation 1+ (NONE SEEN)
[2017-04-13] MEDS ORDERED: MEPERIDINE 50 MG/ML SYRINGE IV ONE (08:31)
[2017-04-13] MEDS: CIPROFLOXACIN 400 MG/200 ML BAG IV SCH ×2 (09:08→20:20)
[2017-04-13] MEDS: PANTOPRAZOLE 40 MG TABLET PO SCH (10:42)
[2017-04-13] MEDS: POTASSIUM CHLORIDE 20 MEQ PACKET PO SCH ×2 (10:42→18:15)
[2017-04-13] MEDS: DOCUSATE SODIUM 100 MG CAPSULE PO SCH ×2 (10:42→20:20)
[2017-04-13] MEDS ORDERED: ePHEDrine 50 MG/ML AMPUL IV ONE (11:00)
[2017-04-13] MEDS ORDERED: ONDANSETRON 4 MG/2 ML VIAL IV ONE (11:00)
[2017-04-13] MEDS ORDERED: DEXAMETHASONE 10 MG/ML VIAL IV ONE (11:00)
[2017-04-13] MEDS ORDERED: MIDAZOLAM 2 MG/2 ML VIAL IV ONE (11:00)
[2017-04-13] MEDS ORDERED: SUCCINYLCHOLINE 20 MG/ML ML IV ONE (11:00)
[2017-04-13] MEDS ORDERED: KETAMINE 100 MG/ML ML IV ONE (11:00)
[2017-04-13] MEDS ORDERED: PROPOFOL 200 MG/20 ML VIAL IV ONE (11:00)
[2017-04-13] MEDS ORDERED: fentaNYL 250 MCG/5 ML VIAL IV ONE (11:00)
[2017-04-13] MEDS ORDERED: LIDOCAINE HCL/PF 100 MG/5 ML SYRINGE IV ONE (11:00)
[2017-04-13] MEDS ORDERED: diphenhydrAMINE 50 MG/ML VIAL IV PRN ×2 (11:28→13:28)
[2017-04-13] MEDS ORDERED: HYDROmorphone 2 MG/ML SYRINGE IV PRN (11:28)
[2017-04-13] MEDS ORDERED: fentaNYL 100 MCG/2 ML VIAL IV PRN (11:28)
[2017-04-13] MEDS ORDERED: METHOCARBAMOL 1,000 MG/10 ML VIAL IV PRN (11:28)
[2017-04-13] MEDS ORDERED: ePHEDrine 50 MG/ML AMPUL IV PRN (11:28)
[2017-04-13] MEDS ORDERED: METOCLOPRAMIDE 10 MG/2 ML VIAL IV PRN (11:28)
[2017-04-13] MEDS ORDERED: MEPERIDINE 50 MG/ML SYRINGE IM PRN (11:28)
[2017-04-13] MEDS ORDERED: IPRATROPIUM/ALBUTEROL 3 ML AMPUL.NEB NEB PRN ×2 (11:28→13:28)
[2017-04-13] MEDS ORDERED: BENZOCAINE/MENTHOL 1 LOZENGE PO PRN (11:28)
[2017-04-13] MEDS ORDERED: LACTATED RINGERS 250 ML IV PRN (11:28)
[2017-04-13] MEDS ORDERED: NALOXONE HCL 0.4 MG/ML VIAL IV PRN (11:28)
[2017-04-13] MEDS ORDERED: FLUMAZENIL 0.1 MG/ML ML IV PRN (11:28)
[2017-04-13] MEDS ORDERED: ONDANSETRON 4 MG/2 ML VIAL IV PRN ×2 (11:28→13:28)
[2017-04-13] MEDS ORDERED: MEPERIDINE 25 MG/ML SYRINGE IV PRN (11:28)
[2017-04-13] MEDS ORDERED: LACTATED RINGERS 1,000 ML IV SCH (11:30)
--- NOTE | 2017-04-13 12:21 | Brief Operative Note ---
Date of procedure: 04/13/17 Pre-op diagnosis: ischiorectal abscess Post-op diagnosis: other (ischiorectal abscess) Procedure: excisional debridement of ischiorectal abscess with extension into buttock ,left Grafts/Implants: No Anesthesia: GETA Findings: wound is improved but there were three necrotic tracks that require aggressive debridement of fat ,muscle and fascia Complications: none Surgeon: Rach Reis Specimens Removed/Pathology: none sent (necrotic tissue discarded) Condition: stable Disposition: PACU
[2017-04-13] MEDS ORDERED: BACITRACIN 50,000 UNIT VIAL IR ONE (12:34)
[2017-04-13] MEDS ORDERED: 0.9 % SODIUM CHLORIDE 10 ML SYRINGE IV PRN (13:28)
[2017-04-14] MEDS: 0.9 % SODIUM CHLORIDE 1,000 ML IV SCH ×3 (00:12→09:47)
[2017-04-14] MEDS: metroNIDAZOLE 500 MG/100 ML BAG IV SCH ×4 (00:12→17:29)
[2017-04-14] MEDS: MEPERIDINE 50 MG/ML SYRINGE IV PRN ×4 (03:25→22:07)
[2017-04-14] MEDS: HYDROcodone/APAP 10/325MG TABLET PO PRN ×5 (03:25→20:43)
[2017-04-14] MEDS: MEROPENEM 1 GM in 0.9 % SODIUM CHLORIDE 50 ML IV SCH ×3 (06:04→22:10)
[2017-04-14] MEDS: 0.9 % SODIUM CHLORIDE 10 ML SYRINGE IV SCH ×3 (06:04→22:45)
[2017-04-14] MEDS: POTASSIUM CHLORIDE 20 MEQ PACKET PO SCH ×2 (07:07→17:29)
[2017-04-14] MEDS: PANTOPRAZOLE 40 MG TABLET PO SCH (07:07)
[2017-04-14] MEDS: DOCUSATE SODIUM 100 MG CAPSULE PO SCH ×2 (07:08→20:43)
[2017-04-14] MEDS: CIPROFLOXACIN 400 MG/200 ML BAG IV SCH ×2 (09:41→20:44)
[2017-04-14 10:04] LABS: Basophils # (Auto) 0 K/mcL (0.0-0.3); Basophils % (Auto) 0.2 % (0.0-2.0); Eosinophils # (Auto) 0.3 K/mcL (0.0-0.7); Eosinophils % (Auto) 2.2 % (0.0-7.0); Granulocytes % (Auto) 61.5 % (38.0-78.0); Lymphocytes % (Auto) 25.4 % (15.5-49.0); Mean Cell Volume 94.2 fL (80.0-100.0); Mean Corpuscular Hemoglobin 31.1 pg (26.0-34.0); Monocytes # (Auto) 1.2 K/mcL (0.1-0.9); Monocytes % (Auto) 10.7 % (1.0-12.0); Platelet Count 321 K/mcL (140-440); RBC 3.69 M/mcL (4.50-5.90); Red Cell Distribution Width 13.6 % (11.5-14.5)
[2017-04-14 10:05] LABS: ALT/SGPT 46 U/l (0-40); Albumin 2.4 gm/dL (3.2-5.2); Albumin/Globulin Ratio 0.8 (1.0-2.3); Alkaline Phosphatase 55 U/L (39-117); Bilirubin,Direct < 0.2 mg/dL (0.0-0.3); Blood Urea Nitrogen 7 mg/dl (6-20); Gamma Glutamyl Transpeptidase 26 U/L (8-61); Magnesium 2.1 mg/dL (1.6-2.5); Uric Acid 2.9 mg/dL (2.5-8.0)
--- NOTE | 2017-04-14 12:19 | General Surgery Progress Note ---
Subjective Patient reports: feels better, pain is less, afebrile Narrative: Note initiated : 04/14/17 at 12:16 pm Service Date, if different from initiated Date: [] Patient: Bear Reis 46 y/o M admitted on 04/08/17 for Left Buttock and Ilya Area Abscess. Chief Complaint: [Patient is much improved. He has decreased swelling of his buttock and perineum. No swelling in his scrotal sac is resolved. His white count continues to decrease.] Objective Temp Pulse Resp BP Pulse Ox 98.2 F 63 16 131/79 95 04/14/17 11:19 04/14/17 04:00 04/14/17 11:19 04/14/17 11:19 04/14/17 11:19 - Additional Data Intake & Output - Last 24 hours: Intake & Output 04/12/17 04/13/17 04/14/17 04/15/17 05:59 05:59 05:59 05:59 Intake Total 3513 / 3513 4730 / 4730 5600 / 5600 1460 / 1460 Output Total 1400 / 1400 2 / 2 1450 / 1450 Balance 2113 / 2113 4728 / 4728 4150 / 4150 1460 / 1460 Weight 293 lb 8 oz 301 lb 8 oz 303 lb - General physical appearance moderate pain - Eyes PERRL - ENT no congestion - Neck no venous distension - Respiratory normal respiratory effort, clear to auscultation - Cardiovascular Cardiovascular exam: Present: normal rate and rhythm, RRR, +S1, +S2. Absent: JVD - Abdomen soft, non tender - Genitourinary other (mild swelling of the base of the scrotum) - Rectum normal sphincter tone, no hemorrhoids, other (left ilya-anal and rectal area is packed and has minimal drainage. The cellulits has remarkably improved) - Integumentary no rash, no growths, no abnormal pigmentation - Neurologic normal coordination, normal sensation - Musculoskeletal normal gait, normal posture - Psychiatric oriented to time, oriented to person, oriented to place, speech is normal, memory intact - Labs 04/18/17 04:30 04/16/17 04:46 Diabetes panel 04/14/17 Range/Units 08:15 Sodium 139 (133-145) mmol/L Potassium 4.3 (3.3-5.1) mmol/L Chloride 102 (96-108) mmol/L Carbon Dioxide 27 (22-30) mmol/L BUN 7 (6-20) mg/dl Creatinine 0.6 L (0.7-1.2) mg/dl Glucose 104 (70-105) mg/dL Calcium 8.1 L (8.6-10.4) mg/dl AST 28 (0-37) U/l ALT 46 H (0-40) U/l Alkaline Phosphatase 55 (39-117) U/L Total Protein 5.4 L (5.9-8.4) gm/dL Albumin 2.4 L (3.2-5.2) gm/dL Triglycerides 65 (<150) mg/dl Calcium panel 04/14/17 Range/Units 08:15 Calcium 8.1 L (8.6-10.4) mg/dl Phosphorus 2.8 (2.7-4.5) mg/dL Albumin 2.4 L (3.2-5.2) gm/dL Pituitary panel 04/14/17 Range/Units 08:15 Sodium 139 (133-145) mmol/L Potassium 4.3 (3.3-5.1) mmol/L Chloride 102 (96-108) mmol/L Carbon Dioxide 27 (22-30) mmol/L BUN 7 (6-20) mg/dl Creatinine 0.6 L (0.7-1.2) mg/dl Glucose 104 (70-105) mg/dL Calcium 8.1 L (8.6-10.4) mg/dl Adrenal panel 04/14/17 Range/Units 08:15 Sodium 139 (133-145) mmol/L Potassium 4.3 (3.3-5.1) mmol/L Chloride 102 (96-108) mmol/L Carbon Dioxide 27 (22-30) mmol/L BUN 7 (6-20) mg/dl Creatinine 0.6 L (0.7-1.2) mg/dl Glucose 104 (70-105) mg/dL Calcium 8.1 L (8.6-10.4) mg/dl Total Bilirubin < 0.2 (0.0-1.0) mg/dL AST 28 (0-37) U/l ALT 46 H (0-40) U/l Alkaline Phosphatase 55 (39-117) U/L Total Protein 5.4 L (5.9-8.4) gm/dL Albumin 2.4 L (3.2-5.2) gm/dL Assessment and Plan (1) Perirectal abscess Status: Acute Assessment and plan: . Will continue on present therapy and reexplore on Sunday before considering discharge home. general status is much improved Is Current Visit: Yes (2) Acute onset sepsis Status: Acute Assessment and plan: Septicemia is improved Current Visit: Yes (3) Diabetes mellitus type 2 in obese Status: Acute Assessment and plan: Blood sugars have been in the 150-180 range but his A1c is only 5.6 Current Visit: Yes - Time Spent With Patient Total time spent is greater than 50% in coordination of care (as documented) at patient's floor/unit and/or counseling patient:
[2017-04-15] MEDS: metroNIDAZOLE 500 MG/100 ML BAG IV SCH ×4 (00:16→17:16)
[2017-04-15] MEDS: HYDROcodone/APAP 10/325MG TABLET PO PRN ×6 (00:16→20:47)
[2017-04-15] MEDS: MEPERIDINE 50 MG/ML SYRINGE IV PRN ×3 (03:58→22:09)
[2017-04-15 05:48] LABS: Basophils # (Auto) 0 K/mcL (0.0-0.3); Basophils % (Auto) 0.4 % (0.0-2.0); Eosinophils # (Auto) 0.5 K/mcL (0.0-0.7); Eosinophils % (Auto) 5.1 % (0.0-7.0); Granulocytes % (Auto) 58.1 % (38.0-78.0); Lymphocytes # (Auto) 2.7 K/mcL (1.5-4.8); Lymphocytes % (Auto) 25.8 % (15.5-49.0); Mean Cell Volume 94.1 fL (80.0-100.0); Mean Corpuscular HGB Conc 33.3 g/dL (31.0-36.0); Mean Corpuscular Hemoglobin 31.3 pg (26.0-34.0); Monocytes # (Auto) 1.1 K/mcL (0.1-0.9); Monocytes % (Auto) 10.6 % (1.0-12.0); Platelet Count 357 K/mcL (140-440); RBC 3.61 M/mcL (4.50-5.90); Red Cell Distribution Width 13.4 % (11.5-14.5)
[2017-04-15] MEDS: MEROPENEM 1 GM in 0.9 % SODIUM CHLORIDE 50 ML IV SCH ×3 (06:03→22:10)
[2017-04-15] MEDS: 0.9 % SODIUM CHLORIDE 10 ML SYRINGE IV SCH ×3 (06:03→20:47)
[2017-04-15 06:09] LABS: ALT/SGPT 54 U/l (0-40); Albumin 2.5 gm/dL (3.2-5.2); Albumin/Globulin Ratio 0.9 (1.0-2.3); Alkaline Phosphatase 58 U/L (39-117); Bilirubin,Direct < 0.2 mg/dL (0.0-0.3); Blood Urea Nitrogen 8 mg/dl (6-20); Gamma Glutamyl Transpeptidase 29 U/L (8-61); Magnesium 2.1 mg/dL (1.6-2.5); Uric Acid 2.9 mg/dL (2.5-8.0)
[2017-04-15] MEDS: PANTOPRAZOLE 40 MG TABLET PO SCH (08:00)
[2017-04-15] MEDS: POTASSIUM CHLORIDE 20 MEQ PACKET PO SCH ×2 (08:01→17:16)
[2017-04-15] MEDS: DOCUSATE SODIUM 100 MG CAPSULE PO SCH ×2 (08:01→20:47)
[2017-04-15] MEDS: CIPROFLOXACIN 400 MG/200 ML BAG IV SCH ×2 (08:54→20:48)
--- NOTE | 2017-04-15 12:47 | General Surgery Progress Note ---
Subjective Patient reports: feels better, pain is less, tolerating a regular diet, voiding w/o difficulty, flatus, bowel movement, afebrile Narrative: Note initiated : 04/15/17 at 12:45 pm Service Date, if different from initiated Date: [] Patient: Bear Reis 46 y/o M admitted on 04/08/17 for Left Buttock and Ilya Area Abscess. Chief Complaint: [Patient continues to do well. He is afebrile and his pain is better controlled. He has less drainage. The induration of his left buttock is less. His white blood count is down to 10. He states that he feels better overall. Discussed the need for examination under anesthesia tomorrow with possible placement of wound VAC if the wound bed is clean enough.] Objective Temp Pulse Resp BP Pulse Ox 96.7 F L 67 16 144/67 93 04/15/17 11:19 04/15/17 04:00 04/15/17 11:19 04/15/17 11:19 04/15/17 11:19 - Additional Data Intake & Output - Last 24 hours: Intake & Output 04/13/17 04/14/17 04/15/17 04/16/17 05:59 05:59 05:59 05:59 Intake Total 4730 / 4730 5600 / 5600 3430 / 3430 460 / 460 Output Total / 1450 / 1450 Balance 4728 / 4728 4150 / 4150 3430 / 3430 460 / 460 Weight 301 lb 8 oz 303 lb 305 lb - General physical appearance no distress - Eyes PERRL - ENT no congestion - Neck no venous distension - Respiratory clear to auscultation - Cardiovascular Cardiovascular exam: Present: normal rate and rhythm, RRR, +S1, +S2. Absent: gallop, JVD - Abdomen soft, non tender, bowel sounds (Abdomen is benign with good active bowel sounds he does not have any tenderness) - Genitourinary normal penis with no external lesions, testicles present, testicles non-tender, other (Scrotal swelling has resolved and there is no edema involving the scrotum ) - Rectum normal sphincter tone (Rectal sphincter tone is good the ilya-anal swelling is decreased. He has less purulent drainage and induration from the wound bed in the left buttock), no hemorrhoids, no tenderness, no masses, no bleeding - Integumentary no rash, no growths, no abnormal pigmentation - Neurologic normal coordination, normal sensation - Musculoskeletal normal gait, normal posture - Psychiatric oriented to time, oriented to person, oriented to place, speech is normal, memory intact - Labs 04/15/17 04:35 04/15/17 04:35 Diabetes panel 04/15/17 Range/Units 04:35 Sodium 138 (133-145) mmol/L Potassium 4.3 (3.3-5.1) mmol/L Chloride 102 (96-108) mmol/L Carbon Dioxide 31 H (22-30) mmol/L BUN 8 (6-20) mg/dl Creatinine 0.6 L (0.7-1.2) mg/dl Glucose 99 (70-105) mg/dL Calcium 7.8 L (8.6-10.4) mg/dl AST 42 H (0-37) U/l ALT 54 H (0-40) U/l Alkaline Phosphatase 58 (39-117) U/L Total Protein 5.4 L (5.9-8.4) gm/dL Albumin 2.5 L (3.2-5.2) gm/dL Triglycerides 82 (<150) mg/dl Calcium panel 04/15/17 Range/Units 04:35 Calcium 7.8 L (8.6-10.4) mg/dl Phosphorus 3.0 (2.7-4.5) mg/dL Albumin 2.5 L (3.2-5.2) gm/dL Pituitary panel 04/15/17 Range/Units 04:35 Sodium 138 (133-145) mmol/L Potassium 4.3 (3.3-5.1) mmol/L Chloride 102 (96-108) mmol/L Carbon Dioxide 31 H (22-30) mmol/L BUN 8 (6-20) mg/dl Creatinine 0.6 L (0.7-1.2) mg/dl Glucose 99 (70-105) mg/dL Calcium 7.8 L (8.6-10.4) mg/dl Adrenal panel 04/15/17 Range/Units 04:35 Sodium 138 (133-145) mmol/L Potassium 4.3 (3.3-5.1) mmol/L Chloride 102 (96-108) mmol/L Carbon Dioxide 31 H (22-30) mmol/L BUN 8 (6-20) mg/dl Creatinine 0.6 L (0.7-1.2) mg/dl Glucose 99 (70-105) mg/dL Calcium 7.8 L (8.6-10.4) mg/dl Total Bilirubin 0.2 (0.0-1.0) mg/dL AST 42 H (0-37) U/l ALT 54 H (0-40) U/l Alkaline Phosphatase 58 (39-117) U/L Total Protein 5.4 L (5.9-8.4) gm/dL Albumin 2.5 L (3.2-5.2) gm/dL Assessment and Plan (1) Perirectal abscess Status: Acute Assessment and plan: . Will continue on present therapy and reexplore on Sunday before considering discharge home. general status is much improved Is Current Visit: Yes (2) Acute onset sepsis Status: Acute Assessment and plan: Septicemia is resolved Current Visit: Yes (3) Diabetes mellitus type 2 in obese Status: Acute Assessment and plan: Blood sugars have been in the 150-180 range but his A1c is only 5.6 Current Visit: Yes - Time Spent With Patient Total time spent is greater than 50% in coordination of care (as documented) at patient's floor/unit and/or counseling patient:
[2017-04-16] MEDS: metroNIDAZOLE 500 MG/100 ML BAG IV SCH ×4 (00:20→17:51)
[2017-04-16] MEDS: HYDROcodone/APAP 10/325MG TABLET PO PRN ×6 (00:20→23:06)
[2017-04-16] MEDS: 0.9 % SODIUM CHLORIDE 10 ML SYRINGE IV SCH ×5 (04:39→21:59)
[2017-04-16] MEDS: MEPERIDINE 50 MG/ML SYRINGE IV PRN ×6 (04:39→23:07)
[2017-04-16 05:29] LABS: Basophils # (Auto) 0 K/mcL (0.0-0.3); Basophils % (Auto) 0.3 % (0.0-2.0); Eosinophils # (Auto) 0.5 K/mcL (0.0-0.7); Eosinophils % (Auto) 4.4 % (0.0-7.0); Granulocytes % (Auto) 64.6 % (38.0-78.0); Lymphocytes # (Auto) 2.3 K/mcL (1.5-4.8); Lymphocytes % (Auto) 21.2 % (15.5-49.0); Mean Cell Volume 93.4 fL (80.0-100.0); Mean Corpuscular HGB Conc 33.7 g/dL (31.0-36.0); Mean Corpuscular Hemoglobin 31.5 pg (26.0-34.0); Monocytes % (Auto) 9.5 % (1.0-12.0); Platelet Count 368 K/mcL (140-440); Red Cell Distribution Width 13.7 % (11.5-14.5)
[2017-04-16 05:45] LABS: ALT/SGPT 47 U/l (0-40); Albumin 2.5 gm/dL (3.2-5.2); Albumin/Globulin Ratio 0.8 (1.0-2.3); Alkaline Phosphatase 61 U/L (39-117); Bilirubin,Direct < 0.2 mg/dL (0.0-0.3); Blood Urea Nitrogen 8 mg/dl (6-20); Gamma Glutamyl Transpeptidase 31 U/L (8-61); Magnesium 2.1 mg/dL (1.6-2.5)
[2017-04-16] MEDS: MEROPENEM 1 GM in 0.9 % SODIUM CHLORIDE 50 ML IV SCH ×3 (05:59→23:15)
[2017-04-16] MEDS: CIPROFLOXACIN 400 MG/200 ML BAG IV SCH ×2 (08:54→21:58)
[2017-04-16] MEDS: POTASSIUM CHLORIDE 20 MEQ PACKET PO SCH ×2 (10:45→17:51)
[2017-04-16] MEDS: DOCUSATE SODIUM 100 MG CAPSULE PO SCH ×2 (10:45→21:58)
[2017-04-16] MEDS: PANTOPRAZOLE 40 MG TABLET PO SCH (10:46)
[2017-04-16] MEDS ORDERED: HYDROmorphone 2 MG/ML SYRINGE IV PRN (12:01)
[2017-04-16] MEDS ORDERED: IPRATROPIUM/ALBUTEROL 3 ML AMPUL.NEB NEB PRN ×2 (12:01→14:40)
[2017-04-16] MEDS ORDERED: METHOCARBAMOL 1,000 MG/10 ML VIAL IV PRN (12:01)
[2017-04-16] MEDS ORDERED: MEPERIDINE 25 MG/ML SYRINGE IV PRN (12:01)
[2017-04-16] MEDS ORDERED: BENZOCAINE/MENTHOL 1 LOZENGE PO PRN (12:01)
[2017-04-16] MEDS ORDERED: LIDOCAINE HCL/PF 100 MG/5 ML SYRINGE IV ONE (12:05)
[2017-04-16] MEDS ORDERED: KETAMINE 100 MG/ML ML IV ONE (12:05)
[2017-04-16] MEDS ORDERED: ROCURONIUM 10 MG/ML ML IV ONE (12:05)
[2017-04-16] MEDS ORDERED: ONDANSETRON 4 MG/2 ML VIAL IV ONE (12:05)
[2017-04-16] MEDS ORDERED: fentaNYL 100 MCG/2 ML VIAL IV ONE (12:05)
[2017-04-16] MEDS ORDERED: GLYCOPYRROLATE 0.2 MG/ML VIAL IV ONE (12:05)
[2017-04-16] MEDS ORDERED: PROPOFOL 200 MG/20 ML VIAL IV ONE (12:05)
[2017-04-16] MEDS ORDERED: MIDAZOLAM 2 MG/2 ML VIAL IV ONE (12:05)
[2017-04-16] MEDS ORDERED: LACTATED RINGERS 1,000 ML IV SCH (12:15)
[2017-04-16] MEDS ORDERED: BACITRACIN 50,000 UNIT VIAL IR ONE (13:05)
[2017-04-16] MEDS: fentaNYL 100 MCG/2 ML VIAL IV PRN ×3 (13:20→13:49)
--- NOTE | 2017-04-16 14:21 | Brief Operative Note ---
Date of procedure: 04/16/17 Pre-op diagnosis: ischiorectal abscess left Post-op diagnosis: other (ischiorectal abscess,left) Procedure: excisional debridement of ischiorectal abscess with fasciitis Grafts/Implants: No Anesthesia: GLMA Findings: 2 new areas of progressive necrois with tracting into left buttock and base of scrotum; more necrotic tissue laterally and posteriorly Complications: none Surgeon: Rach Reis Estimated blood loss (cc): 50 Specimens Removed/Pathology: none sent Condition: stable Disposition: PACU
[2017-04-16] MEDS ORDERED: MEPERIDINE 50 MG/ML SYRINGE IV PRN (14:23)
[2017-04-16] MEDS ORDERED: ONDANSETRON 4 MG/2 ML VIAL IV PRN (14:40)
[2017-04-16] MEDS ORDERED: 0.9 % SODIUM CHLORIDE 10 ML SYRINGE IV PRN (14:40)
[2017-04-16] MEDS ORDERED: diphenhydrAMINE 50 MG/ML VIAL IV PRN (14:40)
[2017-04-16] MEDS ORDERED: MEPERIDINE 50 MG/ML SYRINGE IV SCH (16:00)
[2017-04-17] MEDS: metroNIDAZOLE 500 MG/100 ML BAG IV SCH ×4 (00:25→18:03)
[2017-04-17] MEDS: HYDROcodone/APAP 10/325MG TABLET PO PRN ×4 (03:35→22:41)
[2017-04-17] MEDS: MEPERIDINE 50 MG/ML SYRINGE IV PRN ×4 (03:35→21:10)
[2017-04-17] MEDS: 0.9 % SODIUM CHLORIDE 10 ML SYRINGE IV SCH ×3 (05:45→21:11)
[2017-04-17] MEDS: MEROPENEM 1 GM in 0.9 % SODIUM CHLORIDE 50 ML IV SCH ×3 (05:45→22:42)
[2017-04-17] MEDS: PANTOPRAZOLE 40 MG TABLET PO SCH (07:15)
[2017-04-17] MEDS: POTASSIUM CHLORIDE 20 MEQ PACKET PO SCH ×2 (08:06→18:03)
[2017-04-17] MEDS: CIPROFLOXACIN 400 MG/200 ML BAG IV SCH ×2 (08:47→21:11)
[2017-04-17] MEDS: DOCUSATE SODIUM 100 MG CAPSULE PO SCH ×2 (08:47→21:11)
[2017-04-17 09:15] LABS: Basophils # (Auto) 0 K/mcL (0.0-0.3); Basophils % (Auto) 0.3 % (0.0-2.0); Eosinophils # (Auto) 0.4 K/mcL (0.0-0.7); Eosinophils % (Auto) 3.2 % (0.0-7.0); Lymphocytes # (Auto) 1.8 K/mcL (1.5-4.8); Mean Cell Volume 95.3 fL (80.0-100.0); Mean Corpuscular HGB Conc 33.1 g/dL (31.0-36.0); Mean Corpuscular Hemoglobin 31.6 pg (26.0-34.0); Monocytes # (Auto) 0.8 K/mcL (0.1-0.9); Monocytes % (Auto) 7.5 % (1.0-12.0); Platelet Count 357 K/mcL (140-440); RBC 3.33 M/mcL (4.50-5.90); Red Cell Distribution Width 13.4 % (11.5-14.5)
--- NOTE | 2017-04-17 16:03 | General Surgery Progress Note ---
Subjective Patient reports: feels better, pain is less, tolerating a regular diet, flatus, bowel movement, afebrile Narrative: Note initiated : 04/17/17 at 4:00 pm Service Date, if different from initiated Date: [] Patient: Bear Reis 46 y/o M admitted on 04/08/17 for Left Buttock and Laya Area Abscess. Chief Complaint: [Mr. Reis is doing Much better he has less drainage and he has remained afebrile. He has some difficulty voiding earlier today but this may be related to the inflammation that is along his urethra. His wound will be reevaluated under anesthesia tomorrow.] Objective Temp Pulse Resp BP Pulse Ox 97.6 F 68 16 132/79 94 04/17/17 11:53 04/17/17 04:00 04/17/17 11:53 04/17/17 11:53 04/17/17 11:53 - Additional Data Intake & Output - Last 24 hours: Intake & Output 04/15/17 04/16/17 04/17/17 04/18/17 05:59 05:59 05:59 05:59 Intake Total 3430 / 3430 2250 / 2250 1630 / 1630 1230 / 1230 Output Total 4520 / 4520 1300 / 1300 Balance 3430 / 3430 2250 / 2250 -2890 / -2890 -70 / -70 Weight 305 lb 292 lb 8 oz 278 lb 8 oz - General physical appearance no distress - Eyes PERRL - ENT no congestion - Neck no venous distension - Respiratory normal respiratory effort, clear to auscultation - Cardiovascular Cardiovascular exam: Present: normal rate and rhythm, RRR, +S1. Absent: gallop , JVD, systolic murmur - Abdomen soft, non tender, bowel sounds (Abdomen is benign and nontender) - Genitourinary normal penis with no external lesions ( scrotal edema has resolved), testicles present, testicles non-tender - Integumentary no rash, no growths, no abnormal pigmentation - Neurologic normal coordination, normal sensation - Psychiatric oriented to time, oriented to person, oriented to place, speech is normal, memory intact - Labs 04/17/17 07:56 04/16/17 04:46 Assessment and Plan (1) Perirectal abscess Status: Acute Assessment and plan: . Will continue on present therapy . general status is much improved. He will have exploration of his wound tomorrow under anesthesia Current Visit: Yes (2) Acute onset sepsis Status: Acute Assessment and plan: Septicemia is resolved Current Visit: Yes (3) Diabetes mellitus type 2 in obese Status: Acute Assessment and plan: Blood sugars have been in the 150-180 range but his A1c is only 5.6 Current Visit: Yes - Time Spent With Patient Total time spent is greater than 50% in coordination of care (as documented) at patient's floor/unit and/or counseling patient:
--- NOTE | 2017-04-17 16:13 | General Surgery Progress Note ---
Subjective Patient reports: feels better, pain is less, tolerating a regular diet, flatus, bowel movement, afebrile Narrative: Note initiated : 04/17/17 at 4:11 pm Service Date, if different from initiated Date: [] Patient: Bear Reis 46 y/o M admitted on 04/08/17 for Left Buttock and Laya Area Abscess. Chief Complaint: [patient is doing much better. he has moderate amount of pain. the drainage is much less. he has some difficulty voiding related to the debridement on yesterday but it is improved.] Objective Temp Pulse Resp BP Pulse Ox 97.6 F 68 16 132/79 94 04/17/17 11:53 04/17/17 04:00 04/17/17 11:53 04/17/17 11:53 04/17/17 11:53 - Additional Data Intake & Output - Last 24 hours: Intake & Output 04/15/17 04/16/17 04/17/17 04/18/17 05:59 05:59 05:59 05:59 Intake Total 3430 / 3430 2250 / 2250 1630 / 1630 1230 / 1230 Output Total 4520 / 4520 1300 / 1300 Balance 3430 / 3430 2250 / 2250 -2890 / -2890 -70 / -70 Weight 305 lb 292 lb 8 oz 278 lb 8 oz - General physical appearance moderate distress, moderate pain - Eyes PERRL - ENT no congestion - Neck no venous distension - Respiratory clear to auscultation - Cardiovascular Cardiovascular exam: Present: normal rate and rhythm, RRR, +S1, +S2. Absent: gallop, JVD - Abdomen soft, non tender (abdomen is benign) - Genitourinary normal penis with no external lesions, testicles present, testicles non-tender, other (scrotal edema is much less) - Rectum normal sphincter tone, no hemorrhoids, no tenderness, no masses, no bleeding - Integumentary no rash, no growths, no abnormal pigmentation - Neurologic normal coordination, normal sensation - Musculoskeletal normal gait, normal posture - Psychiatric oriented to time, oriented to person, oriented to place, speech is normal, memory intact - Labs 04/17/17 07:56 04/16/17 04:46 Assessment and Plan (1) Perirectal abscess Status: Acute Assessment and plan: . Will continue on present therapy . general status is much improved. He will have exploration of his wound tomorrow under anesthesia Current Visit: Yes (2) Acute onset sepsis Status: Acute Assessment and plan: Septicemia is resolved Current Visit: Yes (3) Diabetes mellitus type 2 in obese Status: Acute Assessment and plan: Blood sugars have been in the 150-180 range but his A1c is only 5.6 Current Visit: Yes - Time Spent With Patient Total time spent is greater than 50% in coordination of care (as documented) at patient's floor/unit and/or counseling patient:
[2017-04-18] MEDS: metroNIDAZOLE 500 MG/100 ML BAG IV SCH ×5 (00:24→23:55)
[2017-04-18] MEDS: MEPERIDINE 50 MG/ML SYRINGE IV PRN ×2 (01:47→10:52)
[2017-04-18] MEDS: HYDROcodone/APAP 10/325MG TABLET PO PRN (04:40)
[2017-04-18] MEDS: MEROPENEM 1 GM in 0.9 % SODIUM CHLORIDE 50 ML IV SCH ×3 (05:37→23:18)
[2017-04-18 06:02] LABS: Basophils # (Auto) 0 K/mcL (0.0-0.3); Basophils % (Auto) 0.3 % (0.0-2.0); Eosinophils # (Auto) 0.4 K/mcL (0.0-0.7); Eosinophils % (Auto) 4.1 % (0.0-7.0); Granulocytes % (Auto) 56.7 % (38.0-78.0); Lymphocytes # (Auto) 2.6 K/mcL (1.5-4.8); Lymphocytes % (Auto) 26.6 % (15.5-49.0); Mean Cell Volume 93.4 fL (80.0-100.0); Mean Corpuscular HGB Conc 33.6 g/dL (31.0-36.0); Mean Corpuscular Hemoglobin 31.4 pg (26.0-34.0); Monocytes # (Auto) 1.2 K/mcL (0.1-0.9); Monocytes % (Auto) 12.3 % (1.0-12.0); Platelet Count 453 K/mcL (140-440); RBC 3.75 M/mcL (4.50-5.90); Red Cell Distribution Width 13.7 % (11.5-14.5)
[2017-04-18] MEDS: 0.9 % SODIUM CHLORIDE 10 ML SYRINGE IV SCH ×3 (06:02→22:00)
[2017-04-18] MEDS ORDERED: ROCURONIUM 10 MG/ML ML IV ONE (08:02)
[2017-04-18] MEDS ORDERED: ONDANSETRON 4 MG/2 ML VIAL ONE (08:02)
[2017-04-18] MEDS ORDERED: fentaNYL 100 MCG/2 ML VIAL IV ONE (08:02)
[2017-04-18] MEDS ORDERED: PROPOFOL 200 MG/20 ML VIAL IV ONE (08:02)
[2017-04-18] MEDS ORDERED: KETAMINE 10 MG/ML ML ONE (08:02)
[2017-04-18] MEDS ORDERED: MIDAZOLAM 2 MG/2 ML VIAL ONE (08:02)
[2017-04-18] MEDS ORDERED: DEXAMETHASONE 10 MG/ML VIAL ONE (08:02)
[2017-04-18] MEDS ORDERED: LIDOCAINE HCL/PF 100 MG/5 ML SYRINGE IV ONE (08:02)
[2017-04-18] MEDS ORDERED: HYDROmorphone 2 MG/ML SYRINGE ONE (08:02)
[2017-04-18] MEDS ORDERED: LACTATED RINGERS 250 ML IV PRN (08:39)
[2017-04-18] MEDS ORDERED: IPRATROPIUM/ALBUTEROL 3 ML AMPUL.NEB NEB PRN ×2 (08:39→10:21)
[2017-04-18] MEDS ORDERED: NALOXONE HCL 0.4 MG/ML VIAL IV PRN (08:39)
[2017-04-18] MEDS ORDERED: METHOCARBAMOL 1,000 MG/10 ML VIAL IV PRN (08:39)
[2017-04-18] MEDS ORDERED: MEPERIDINE 25 MG/ML SYRINGE IV PRN (08:39)
[2017-04-18] MEDS ORDERED: diphenhydrAMINE 50 MG/ML VIAL IV PRN ×2 (08:39→10:21)
[2017-04-18] MEDS ORDERED: ePHEDrine 50 MG/ML AMPUL IV PRN ×2 (08:39→10:21)
[2017-04-18] MEDS ORDERED: BENZOCAINE/MENTHOL 1 LOZENGE PO PRN (08:39)
[2017-04-18] MEDS ORDERED: MEPERIDINE 50 MG/ML SYRINGE IM PRN (08:39)
[2017-04-18] MEDS ORDERED: FLUMAZENIL 0.1 MG/ML ML IV PRN (08:39)
[2017-04-18] MEDS ORDERED: ONDANSETRON 4 MG/2 ML VIAL IV PRN ×2 (08:39→10:21)
[2017-04-18] MEDS ORDERED: LACTATED RINGERS 1,000 ML IV SCH (08:45)
[2017-04-18] MEDS ORDERED: BACITRACIN 50,000 UNIT VIAL IR ONE (08:45)
[2017-04-18] MEDS: DOCUSATE SODIUM 100 MG CAPSULE PO SCH ×2 (09:00→21:57)
[2017-04-18] MEDS: POTASSIUM CHLORIDE 20 MEQ PACKET PO SCH ×2 (09:00→17:32)
[2017-04-18] MEDS: PANTOPRAZOLE 40 MG TABLET PO SCH (09:00)
--- NOTE | 2017-04-18 09:21 | Brief Operative Note ---
Date of procedure: 04/18/17 Pre-op diagnosis: ISCHIORECTAL ABSCESS Post-op diagnosis: other (ISCHIORECTAL ABSCESS) Procedure: EXCISIONAL DEBRIDEMENT OF ISCHIORECTAL ABSCESS WITH PLACEMENT OF WOUND VAC Grafts/Implants: No Anesthesia: GLMA Findings: THE WOUND IS MUCH CREW PERSON AND HAS LESS NECROTIC TISSUE .THE NECROTIC TISSUE WAS DEBRIDED WITH METZENBAUM SCISSORS .THE FIBRINOUS EXUDATE WAS SCRAPED AND SURFACE DEBRIDED WITH A STERILE SCRUB BRUSH. WOUND VAC PLACED AND HOOKED TO SUCTION. Complications: none Surgeon: Rach Reis Estimated blood loss (cc): 25 Specimens Removed/Pathology: none sent Condition: stable Disposition: PACU
[2017-04-18] MEDS: fentaNYL 100 MCG/2 ML VIAL IV PRN ×3 (09:35→09:41)
[2017-04-18] MEDS: HYDROmorphone 2 MG/ML SYRINGE IV PRN ×2 (09:49→09:59)
[2017-04-18] MEDS ORDERED: HYDROmorphone 2 MG/ML SYRINGE IV PRN (10:21)
[2017-04-18] MEDS ORDERED: 0.9 % SODIUM CHLORIDE 10 ML SYRINGE IV PRN (10:21)
[2017-04-18] MEDS ORDERED: ALBUTEROL SULFATE 1 PUFF INHALER INH PRN (10:31)
[2017-04-18] MEDS: CIPROFLOXACIN 400 MG/200 ML BAG IV SCH ×3 (10:59→21:53)
--- NOTE | 2017-04-18 12:46 | Operative Note ---
DATE OF OPERATION: 04/08/2017 PREOPERATIVE DIAGNOSIS: High ischiorectal abscess, left. POSTOPERATIVE DIAGNOSIS: Left-sided high ischiorectal abscess. PROCEDURE: Excisional debridement and drainage of ischiorectal abscess with excision of the muscle, fascia, fat and skin. SURGEON: Rach Reis MD. FINDINGS: A very large abscess along the perirectal space extending at least 10 inches from the perianal area to the anal above the muscles of the pelvic floor. DESCRIPTION: Under general anesthesia, the patient was placed in high lithotomy position. He was then prepped and draped in the sterile field. A timeout procedure was carried out as per protocol. An 18-gauge needle was used to aspirate the area of the most prominent swelling. About 3 mL of dirty, langford-black drainage was aspirated and sent for aerobic and anaerobic cultures. An incision was made in this area, and a very large abscess cavity was entered. It extended along the perirectal space. The incision was enlarged because the tissue appeared to be necrotic suggesting fasciitis. The area was probed and using finger fractionation, multiple loculations of pus were encountered. Using Metzenbaum scissors, some of the necrotic tissue, including fat, muscle and fascia were excised. The dissection continued up above the pelvic floor along the lateral rectal wall, up into the medial groin and high up into the lower pelvis. Once all the loculations were fractionated, a counter incision was made in the area right below the groin. A large 1-inch Jem drain was placed and sutured together. Copious irrigation using four vials of bacitracin and a liter of saline was carried out. It was decided that we would allow free drainage for a few days and then bring him back for repeat debridement. The patient tolerated the procedure well. He was hemodynamically stable throughout the operation. He was awakened and transferred to the postanesthetic care unit in stable, satisfactory condition. LCS:[email or web address] Job ID: [id number] Doc ID: [id number] Rach Reis M.D.
[2017-04-18] MEDS: oxyCODONE HCL 5 MG TABLET PO PRN ×3 (13:57→21:55)
--- NOTE | 2017-04-18 13:58 | Operative Note ---
DATE OF OPERATION: 04/18/2017 PREOPERATIVE DIAGNOSIS: Ischiorectal abscess with necrotizing infection. POSTOPERATIVE DIAGNOSIS: Ischiorectal abscess with necrotizing infection. PROCEDURE: Excisional debridement of ischiorectal abscess with placement of wound VAC system. SURGEON: Rach Reis MD. FINDINGS: The wound was much street cleaner and had less necrotic tissue. The necrotic tissue was debrided with Metzenbaum scissors. The fibrinous exudate was curetted, and the surface was further debrided with a sterile scrub brush. The wound VAC was placed and hooked to 125 mm of suction. The patient tolerated the procedure well. DESCRIPTION: Under general anesthesia, the patient was placed in high lithotomy position. A timeout procedure was carried out as per protocol. The depth of the large ischiorectal abscess was explored. It looked much, much street cleaner and there was less necrotic tissue with some developing healthy granulating tissue. The three cavitary lesions exiting from the main focus were explored and curetted. One lesion extended to the base of the scrotum. The other extended over to the inguinal area, and the third extended laterally and inferiorly into the buttock and out through the mid-buttock above the level of the thigh. All of these areas were curetted. Other necrotic tissue was excised with Metzenbaum scissors. Copious irrigation was carried out after which further abrasion with a scrub brush was carried out to remove fibrinous exudate. Another liter of saline with four vials of bacitracin solution was used to irrigate all of the cavities. I was able to see into the depth of each area and felt that it was clean enough for wound VAC. The white sponge was chosen and trimmed so that it could fit into each of three areas that were tracking from the main cavity. White sponge was placed in the base of the larger cavity. Black sponge was placed over this and occlusive dressing was placed. It was hooked to suction, and there was no leak. It was felt that this was a good closure. The patient tolerated the procedure well. He was taken out of lithotomy position, extubated and transferred to the postanesthetic care unit in satisfactory condition. LCS:[email or web address] Job ID: [id number] Doc ID: [id number] Rach Reis M.D.
[2017-04-18] MEDS ORDERED: ALTEPLASE 2 MG VIAL IV ONE (15:06)
[2017-04-19] MEDS: MEPERIDINE 50 MG/ML SYRINGE IV PRN ×6 (01:58→22:51)
[2017-04-19 05:34] LABS: Basophils # (Auto) 0 K/mcL (0.0-0.3); Basophils % (Auto) 0.3 % (0.0-2.0); Eosinophils # (Auto) 0.2 K/mcL (0.0-0.7); Eosinophils % (Auto) 1.8 % (0.0-7.0); Granulocytes % (Auto) 64.3 % (38.0-78.0); Lymphocytes # (Auto) 2.7 K/mcL (1.5-4.8); Lymphocytes % (Auto) 24.5 % (15.5-49.0); Mean Cell Volume 93.9 fL (80.0-100.0); Mean Corpuscular HGB Conc 33.9 g/dL (31.0-36.0); Mean Corpuscular Hemoglobin 31.9 pg (26.0-34.0); Monocytes % (Auto) 9.1 % (1.0-12.0); Platelet Count 447 K/mcL (140-440); RBC 3.65 M/mcL (4.50-5.90); Red Cell Distribution Width 13.6 % (11.5-14.5)
[2017-04-19] MEDS: 0.9 % SODIUM CHLORIDE 10 ML SYRINGE IV SCH ×3 (05:59→21:43)
[2017-04-19] MEDS: metroNIDAZOLE 500 MG/100 ML BAG IV SCH ×4 (06:00→23:44)
[2017-04-19] MEDS: PANTOPRAZOLE 40 MG TABLET PO SCH (07:41)
[2017-04-19] MEDS: POTASSIUM CHLORIDE 20 MEQ PACKET PO SCH ×2 (07:41→17:53)
[2017-04-19] MEDS: DOCUSATE SODIUM 100 MG CAPSULE PO SCH ×2 (08:41→21:42)
[2017-04-19] MEDS: oxyCODONE HCL 5 MG TABLET PO PRN ×4 (09:05→21:42)
[2017-04-19] MEDS: CIPROFLOXACIN 400 MG/200 ML BAG IV SCH ×2 (10:07→21:42)
[2017-04-19] MEDS: ERTAPENEM 1 GM in 0.9 % SODIUM CHLORIDE 50 ML IV SCH (10:52)
--- NOTE | 2017-04-19 16:31 | General Surgery Progress Note ---
Subjective Patient reports: feels better, still having pain, tolerating a regular diet, flatus, no bowel movement, afebrile Narrative: Note initiated : 04/19/17 at 4:29 pm Service Date, if different from initiated Date: [] Patient: Bear Reis 46 y/o M admitted on 04/08/17 for Left Buttock and Laya Area Abscess. Chief Complaint: [Patient is doing well except for pain control. The oxycodone p.o. and Demerol IV does not control his pain as well. He does not have major drainage at this time. The surrounding tissue is soft and basically nontender. Most of his discomfort is from the suction catheter from the wound VAC.] Objective Temp Pulse Resp BP Pulse Ox 97.6 F 56 L 16 129/73 95 04/19/17 11:43 04/19/17 02:56 04/19/17 11:43 04/19/17 11:43 04/19/17 11:43 - Additional Data Intake & Output - Last 24 hours: Intake & Output 04/17/17 04/18/17 04/19/17 04/20/17 05:59 05:59 05:59 05:59 Intake Total 1630 / 1630 2770 / 2770 3520 / 3520 750 / 750 Output Total 4520 / 4520 1300 / 1300 2525 / 2525 Balance -2890 / -2890 1470 / 1470 995 / 995 750 / 750 Weight 278 lb 8 oz 280 lb 276 lb 276 lb - General physical appearance no distress, moderate pain - Respiratory clear to auscultation - Cardiovascular Cardiovascular exam: Present: normal rate and rhythm, RRR, +S1, +S2. Absent: JVD - Abdomen soft, non tender - Genitourinary other (No scrotal swelling) - Rectum other (Abscess cavity is adequately decompressed with the wound VAC and the surrounding tissue is soft and pliable without cellulitis) - Labs 04/19/17 04:30 04/16/17 04:46 Assessment and Plan (1) Perirectal abscess Status: Acute Assessment and plan: Patient is stable and improved. Will do wound VAC change and evaluation in the morning with tentative plans to discharge home with wound VAC and twice weekly follow-up in the office with IV Invanz and p.o. Cipro. Is Current Visit: Yes (2) Acute onset sepsis Status: Resolved Assessment and plan: Resolved Current Visit: Yes (3) Diabetes mellitus type 2 in obese Status: Acute Assessment and plan: Blood sugars have been in the 150-180 range but his A1c is only 5.6 Current Visit: Yes - Time Spent With Patient Total time spent is greater than 50% in coordination of care (as documented) at patient's floor/unit and/or counseling patient:
[2017-04-19] MEDS ORDERED: ACETAMINOPHEN 1,000 MG/100 ML BOTTLE IV PRN (16:36)
[2017-04-20] MEDS: oxyCODONE HCL 5 MG TABLET PO PRN ×4 (01:54→15:54)
[2017-04-20] MEDS: metroNIDAZOLE 500 MG/100 ML BAG IV SCH ×2 (05:26→12:12)
[2017-04-20] MEDS: 0.9 % SODIUM CHLORIDE 10 ML SYRINGE IV SCH ×3 (05:26→14:56)
[2017-04-20] MEDS: MEPERIDINE 50 MG/ML SYRINGE IV PRN ×3 (05:50→11:15)
[2017-04-20 06:16] LABS: Basophils # (Auto) 0.1 K/mcL (0.0-0.3); Basophils % (Auto) 0.7 % (0.0-2.0); Eosinophils # (Auto) 0.5 K/mcL (0.0-0.7); Granulocytes % (Auto) 48.8 % (38.0-78.0); Lymphocytes # (Auto) 3.3 K/mcL (1.5-4.8); Lymphocytes % (Auto) 35.6 % (15.5-49.0); Mean Cell Volume 94.7 fL (80.0-100.0); Mean Corpuscular HGB Conc 33.6 g/dL (31.0-36.0); Mean Corpuscular Hemoglobin 31.8 pg (26.0-34.0); Monocytes # (Auto) 0.9 K/mcL (0.1-0.9); Monocytes % (Auto) 9.9 % (1.0-12.0); Platelet Count 480 K/mcL (140-440); RBC 3.63 M/mcL (4.50-5.90); Red Cell Distribution Width 14.1 % (11.5-14.5)
[2017-04-20 06:34] LABS: ALT/SGPT 35 U/l (0-40); Albumin 3.1 gm/dL (3.2-5.2); Alkaline Phosphatase 68 U/L (39-117); Bilirubin,Direct < 0.2 mg/dL (0.0-0.3); Blood Urea Nitrogen 14 mg/dl (6-20); Gamma Glutamyl Transpeptidase 32 U/L (8-61); Magnesium 2.2 mg/dL (1.6-2.5); Uric Acid 3.8 mg/dL (2.5-8.0)
[2017-04-20] MEDS: POTASSIUM CHLORIDE 20 MEQ PACKET PO SCH (07:26)
[2017-04-20] MEDS: PANTOPRAZOLE 40 MG TABLET PO SCH (07:27)
[2017-04-20] MEDS: DOCUSATE SODIUM 100 MG CAPSULE PO SCH (07:27)
--- NOTE | 2017-04-20 07:35 | Discharge Summary ---
Providers - Providers Patient information: Note initiated : 04/20/17 at 7:26 am Service Date, if different from initiated Date: [] Patient: Bear Reis 46 y/o M admitted on 04/08/17 for Left Buttock and Laya Area Abscess. Chief Complaint: [] Date of admission: 04/08/17 Discharge date: 04/20/17 Attending physician: Rach Reis Hospitalization Hospital course: 46-year-old male who was admitted with a large perirectal abscess that was explored on 08 April. He had a very large necrotizing abscess that extended above the pelvic floor. He underwent 3 separate debridements under anesthesia and a wound VAC was placed 2 days ago. The wound is now clean without purulent exudate and minimal drainage. His white blood count is 9.6 and he has been afebrile. Patient is stable to be discharged home with a wound VAC and I will follow him up in the office twice weekly until the area along the lower rectum is adequately granulated to prevent erosion into the rectum. Discharge diagnosis: Necrotizing ischio rectal abscess Secondary discharge diagnosis: Acute septicemia [id number] diabetes mellitus Reason for admission: Acute septicemia Procedures: Excisional debridement and drainage of ischiorectal abscess 3 Pertinent studies/significant findings: CT of the pelvis with contrast 2 Complications: None Exam Temp Pulse Resp BP Pulse Ox 96.5 F L 67 16 128/83 97 04/20/17 06:33 04/20/17 04:00 04/20/17 06:33 04/20/17 06:33 04/20/17 06:33 - General physical appearance well developed, well nourished, no distress, moderate pain - Eyes PERRL, normal ocular movement - ENT normal pinna, normal nares, normal mucosa, no hearing loss, no congestion - Head Head exam IM: Present: atraumatic, normocephalic - Neck no masses, no bruits, trachea midline, no lymphadectomy, no venous distension - Cardiovascular Cardiovascular exam IM: Present: normal rate and rhythm - Respiratory normal expansion, normal respiratory effort, clear to percussion, clear to auscultation - Abdomen Abdomen: Present: soft, non tender, bowel sounds Hernia: Present: none - Genitourinary Present: normal penis with no external lesions - Rectum Rectum: Present: normal sphincter tone, no hemorrhoids, no tenderness, no masses , no bleeding, other (The wound bed in the left perianal area is healing uneventfully. Wound VAC was changed and the wound was beginning to granulate with no visible purulent exudate.) - Integumentary Present: no rash, no growths, no abnormal pigmentation - Neurologic Present: normal coordination, normal sensation - Musculoskeletal Present: normal gait, normal posture - Psychiatric Present: oriented to time, oriented to person, oriented to place, speech is normal, memory intact Discharge Plan - Patient/Caregiver Discharge Instructions Activity: increase activity as tolerated Diet: Consistent Carbohydrate Additional Instructions: Office visit on Mondays and of each week for wound VAC change Outpatient treatment daily for IV Invanz 1 g daily Prescriptions: Ciprofloxacin [Cipro] 500 mg PO BID #60 tablet Ertapenem [Invanz] 1 gm IV Q24H #20 vial Meperidine [Demerol] 50 mg PO Q4 #100 tablet metroNIDAZOLE [Flagyl] 500 mg PO Q8 #60 tablet Promethazine [Phenergan] 25 mg PO Q4HP PRN #100 tablet PRN Reason: Pain - Follow up Plan Follow up with: Rach Reis MD [Physician] - 04/23/17 11:00 am Wilson Segovia MD [Primary Care Provider] - Disposition: Home, Self-Care Prognosis: Good Rehab Potential: Good I certify that the patient requires SNF services.: Yes Overall status at discharge: patient is not back to baseline Pending Studies Resuscitation Status Full Code Diet Consistent Carbohydrate Diet Start SunApr 19 Lunch Docusate Sodium (Colace) 100 mg PO BID [facility] Last Admin: 04/19/17 21:42 Dose: 100 mg Admin: 04/19/17 08:41 Dose: 100 mg Admin: 04/18/17 21:57 Dose: 100 mg Heparin Sodium (Porcine) (Heparin Flush) 2 ml IV Q12 [facility] Last Admin: 04/19/17 21:43 Dose: 2 ml Admin: 04/19/17 08:42 Dose: 2 ml Admin: 04/18/17 23:02 Dose: Ciprofloxacin (Cipro) 400 mg in 200 mls @ 200 mls/hr IV Q12H [facility] Last Admin: 04/19/17 21:42 Dose: 200 mls/hr Infusion: 04/19/17 11:30 Dose: 200 mls/hr Admin: 04/19/17 10:07 Dose: 200 mls/hr Infusion: 04/18/17 23:00 Dose: 200 mls/hr Admin: 04/18/17 21:53 Dose: 200 mls/hr Infusion: 04/18/17 11:59 Dose: 200 mls/hr Admin: 04/18/17 10:59 Dose: 200 mls/hr Metronidazole (Flagyl) 500 mg in 100 mls @ 100 mls/hr IV Q6H MICHELLE Last Admin: 04/20/17 05:26 Dose: 100 mls/hr Infusion: 04/20/17 00:44 Dose: 100 mls/hr Admin: 04/19/17 23:44 Dose: 100 mls/hr Infusion: 04/19/17 18:23 Dose: 100 mls/hr Admin: 04/19/17 17:23 Dose: 100 mls/hr Infusion: 04/19/17 12:30 Dose: 100 mls/hr Admin: 04/19/17 11:29 Dose: 100 mls/hr Infusion: 04/19/17 07:00 Dose: 100 mls/hr Admin: 04/19/17 06:00 Dose: 100 mls/hr Infusion: 04/19/17 01:00 Dose: 100 mls/hr Admin: 04/18/17 23:55 Dose: 100 mls/hr Infusion: 04/18/17 18:55 Dose: 100 mls/hr Admin: 04/18/17 17:54 Dose: 100 mls/hr Infusion: 04/18/17 13:10 Dose: 100 mls/hr Admin: 04/18/17 12:10 Dose: 100 mls/hr Ertapenem 1 gm/ Sodium (Chloride) 50 mls @ 100 mls/hr IV Q24H [facility] Last Infusion: 04/19/17 11:30 Dose: 100 mls/hr Admin: 04/19/17 10:52 Dose: 100 mls/hr Meperidine HCl (Demerol) 50 mg IV Q2HP PRN PRN Reason: Pain Last Admin: 04/20/17 05:50 Dose: 50 mg Admin: 04/19/17 22:51 Dose: 50 mg Admin: 04/19/17 20:06 Dose: 50 mg Admin: 04/19/17 15:41 Dose: 50 mg Admin: 04/19/17 10:49 Dose: 50 mg Admin: 04/19/17 06:30 Dose: 50 mg Admin: 04/19/17 01:58 Dose: 50 mg Admin: 04/18/17 10:52 Dose: 50 mg Oxycodone HCl (Roxicodone) 20 mg PO Q4HP PRN PRN Reason: Pain Last Admin: 04/20/17 01:54 Dose: 20 mg Admin: 04/19/17 21:42 Dose: 20 mg Admin: 04/19/17 17:22 Dose: 20 mg Admin: 04/19/17 13:14 Dose: 20 mg Admin: 04/19/17 09:05 Dose: 20 mg Admin: 04/18/17 21:55 Dose: 20 mg Admin: 04/18/17 17:36 Dose: 20 mg Admin: 04/18/17 13:57 Dose: 20 mg Pantoprazole Sodium (Protonix) 40 mg PO QAMAC [facility] Last Admin: 04/19/17 07:41 Dose: 40 mg Potassium Chloride (Klor-Con) 40 meq PO BIDCC [facility] Last Admin: 04/19/17 17:53 Dose: 40 meq Admin: 04/19/17 07:41 Dose: 40 meq Admin: 04/18/17 17:32 Dose: 40 meq Sodium Chloride (Saline Flush) 10 ml IV Q8 [facility] Last Admin: 04/20/17 05:26 Dose: 10 ml Admin: 04/19/17 21:43 Dose: 10 ml Admin: 04/19/17 15:29 Dose: 10 ml Admin: 04/19/17 05:59 Dose: 10 ml Admin: 04/18/17 22:00 Dose: 10 ml Admin: 04/18/17 14:12 Dose: Not Given Shift Summary 04/20/17 04:43 Shift Summary by Bettina Addison&Yuri4. VSS. Up ad jamia in room. Double lumen PICC to LETY. Pain has been controlled with Roxicodone 20mg PO Q4H PRN and Demerol 50mg IV Q2H PRN for breakthrough pain. Plan is for wound vac change and evaluation in the morning and tentative d/c home with wound vac. Will have f/u in wound clinic bi-weekly and will receive IV Invanz and PO Cipro. Initialized on 04/20/17 04:43 - END OF NOTE
[2017-04-20] MEDS: CIPROFLOXACIN 400 MG/200 ML BAG IV SCH (09:05)
[2017-04-20] MEDS: ERTAPENEM 1 GM in 0.9 % SODIUM CHLORIDE 50 ML IV SCH (10:18)
--- NOTE | 2017-04-26 15:02 | Operative Note ---
DATE OF OPERATION: 04/16/2017 PREOPERATIVE DIAGNOSIS: Ischial rectal abscess left. POSTOPERATIVE DIAGNOSIS: Ischial rectal abscess left. PROCEDURE: Excisional debridement of left ischial rectal abscess with fasciitis. SURGEON: Rach Reis MD FINDINGS: Two new areas of progressive necrosis with tracting into left buttock, invasive scrotum more necrotic tissue laterally and posteriorly. DESCRIPTION OF PROCEDURE: Under general anesthesia, the patient was placed in high lithotomy position. The packing from the incision was removed and the eschar brush was used to scrub the surface of the large cavity to help to debride some of the necrotic exudate. Exploration revealed another tract that extended into the left buttock and to the base of the scrotum. The cavities extended about 6 cm in the deep cavity. The tissue was acutely debrided using Metzenbaum scissors primarily. The dissection continued until healthy tissue was encountered. The necrotic tissue extended laterally as well as posteriorly. Once all the necrotic debris was removed, irrigation with bacitracin solution was carried out. The multiple tracts were then packed with Aquacel AG gauze, which were cut in 1 inch strips. The Jem drains were left in place. The large cavity was packed with five 4 x 5 inch Aquacel AG gauzes. The wound was covered with ABD pad and he was placed in large briefs. He was taken out of lithotomy position, extubated and transferred to the Post-Anesthetic Care Unit in satisfactory condition. LCS:[email or web address] Job ID: [id number] Doc ID: [id number] Rach Reis M.D.
--- NOTE | 2017-04-26 15:06 | Operative Note ---
DATE OF OPERATION: 04/13/2017 PREOPERATIVE DIAGNOSIS: Ischiorectal abscess. POSTOPERATIVE DIAGNOSIS: Ischiorectal abscess. PROCEDURE: Excisional debridement of ischiorectal abscess with extension into the left buttock. SURGEON: Rach Reis MD. FINDINGS: The wound is significantly improved, but there were three necrotic tracts that required aggressive debridement of fat, muscle and fascia. DESCRIPTION: The patient was previously operated on twice for necrotic, necrotizing, progressive ischiorectal abscess due to resistant E. coli. He was taken to the OR suite and general anesthesia was induced. A timeout procedure was carried out as per protocol. His perineum and perianal area were prepped and draped. A scrub brush was used to remove some of the fibrinous exudate in the wound. Exploration of the wound revealed some early healing. However, there were three tracts that extended from the large cavitary lesion. One tract extended toward the midline beneath the median raphe and extended to the base of the scrotum. This had a large volume of necrotic debris. It was opened widely and using Metzenbaum scissors and electrocautery, all of the necrotic muscle, fascia and fat was removed, and the area was curetted and then flushed with saline. There was another tract that extended out into the buttock laterally and posteriorly. It was debrided using Metzenbaum scissors and electrocautery. Muscle, fat and fascia were debrided. It extended out to the skin and a long incision was made in the skin. Irrigation was carried out, and the tract was curetted and irrigated once more. A half-inch Jem drain was placed in this area to keep it open. Another tract extended posteriorly and laterally. It was debrided in a similar manner. Once all the areas were cleaned and the depth of the wound was inspected once again, it was decided that it was too soon to consider wound VAC, so the cavities were packed with Aquacel AG gauze. A large ABD pad was placed, and the wound was covered with briefs. The patient was taken out of lithotomy, extubated and transferred to the postanesthetic care unit in stable, satisfactory condition. [email or web address] Job ID: [id number] Doc ID: [id number] Rach Reis M.D.
== END 2017-04-20 16:05 | disposition home or self-care (01) | DRG 853 ==
LOC: ED 09:38 → SUR 15:55 → MEDSUR 18:04
PROVIDERS: ADMIT Family Medicine Adult Medicine; ATTEND Family Medicine Adult Medicine
PROC: IDWOUND (2017-04-08 16:06)